=== PATIENT | male | born 1930 | race American Indian/Alaskan Native ===

== ENCOUNTER 2016-10-19 18:50 | Inpatient (IN) | payer MEDICARE, OTHER ==
[2016-10-19 19:44] VITALS: BMI 40.7
[2016-10-19] MEDS ORDERED: Albuterol-Ipratrop 3 mg / 0.5 (3 ml) UD IH SCH (20:00)
[2016-10-19 21:00] LABS: ADD MANUAL DIFF? NO
[2016-10-19 21:05] LABS: BASO # 0.02 K/mm3 (0.0-2.0); BASO % 0.3 % (0.0-3.0); EOS # 0.4 (0.0-0.7); EOS % 5.8 % (1.5-5.0); GRAN # 3.76 (1.4-6.5); GRAN % 58.9 % (50.0-68.0); HEMATOCRIT 43.2 % (42.0-52.0); LYMPH # 1.7 (1.2-3.4); MEAN CELL VOLUME 90.9 fL (80.0-105.0); MEAN CORPUSCULAR HEMOGLOBIN 30.3 pg (25.0-35.0); MEAN CORPUSCULAR HGB CONC 33.3 g/dl (31.0-37.0); MEAN PLATELET VOLUME 10.2 fl (7.0-11.0); MONO # 0.5 (0.1-0.6); PLATELET COUNT 273 10^3/uL (120.0-450.0); RED CELL DISTRIBUTION WIDTH 13.1 % (11.5-14.5); WHITE BLOOD COUNT 6.4 10^3/ul (4.5-11.0)
[2016-10-19 21:15] LABS: ALB/GLOB RATIO 1.3 (1.1-1.8); ALKALINE PHOSPHATASE 105 U/L (38-133); ALT/SGPT 25 U/L (7-56); AST/SGOT 21 U/L (15-59); BILIRUBIN,TOTAL 0.8 mg/dL (0.2-1.3); BLOOD UREA NITROGEN 13 mg/dL (7-21); CALCIUM 9.3 mg/dL (8.4-10.5); CARBON DIOXIDE 35 mmol/L (21-33); CHLORIDE 95 mmol/L (98-107); GFR AFRICAN-AMERICAN > 60; GLUCOSE,RANDOM 103 mg/dL (70-110); POTASSIUM 3.9 mmol/L (3.6-5.0); SODIUM 138 mmol/L (132-148); TOTAL PROTEIN 7.1 g/dL (5.8-8.3); VENOUS BLOOD GAS BASE EXCESS 5.4 mmol/L (0.0-2.0); VENOUS BLOOD PH 7.22 (7.32-7.43)
[2016-10-19 21:31] LABS: TROPONIN I < 0.01 ng/mL
[2016-10-19 21:48] LABS: ARTERIAL BLOOD GAS HCO3 28.9 mmol/L (21-28); ARTERIAL BLOOD GAS O2 CAPACITY 18.9 mL/dl (16-24); ARTERIAL BLOOD GAS O2 CONTENT 18.1 ML/dl (15-23); ARTERIAL BLOOD GAS PH 7.29 (7.35-7.45); ARTERIAL BLOOD HGB O2 SAT 93.4 % (95.0-98.0); CARBOXYHEMOGLOBIN 2.2 % (0.5-1.5); METHEMOGLOBIN 0.4 % (0.0-3.0)
--- NOTE | 2016-10-19 22:17 | ED PDOC ---
Arrival/HPI - General Chief Complaint: Shortness Of Breath Time Seen by Provider: 10/19/16 19:14 Historian: Patient - History of Present Illness Narrative History of Present Illness (Text): 10/19/16 22:17 An 86 year old male presents to the emergency department complaining of shortness of breath for a week. Patient denies any other complaints at this time. Time/Duration: 1 week Symptom Onset: Sudden Symptom Course: Unchanged Activities at Onset: Rest Context: Home Past Medical History - Provider Review Nursing Documentation Reviewed: Yes - Pulmonary Hx Asthma: Yes Hx Chronic Obstructive Pulmonary Disease (COPD): Yes - Psychiatric Hx Substance Use: No Family/Social History - Physician Review Nursing Documentation Reviewed: Yes Family/Social History: No Known Family HX Smoking Status: Unknown If Ever Smoked Hx Alcohol Use: No Hx Substance Use: No Allergies/Home Meds Allergies/Adverse Reactions: Allergies No Known Allergies Allergy (Verified 10/19/16 19:50) Home Medications: Home Meds Medication Instructions Recorded Confirmed Aspirin [Aspirin Chewable] 81 mg PO DAILY 10/19/16 10/19/16 Prednisone [Deltasone] 20 mg PO DAILY 10/19/16 10/19/16 Review of Systems - Physician Review All systems were reviewed & negative as marked: Yes - Review of Systems Respiratory: SOB Cardiovascular: absent: Chest Pain Gastrointestinal: absent: Abdominal Pain Physical Exam Vital Signs Reviewed: Yes Vital Signs Temp Pulse Resp BP Pulse Ox 10/20/16 00:37 95 H 16 117/70 94 L 10/20/16 00:17 86 10/19/16 21:55 95 H 18 125/76 96 10/19/16 20:15 91 L 10/19/16 18:51 97.7 F 94 H 22 127/79 88 L Temperature: Afebrile Blood Pressure: Normal Pulse: Regular Respiratory Rate: Normal Appearance: Positive for: Well-Appearing, Non-Toxic, Comfortable Pain Distress: None Mental Status: Positive for: Alert and Oriented X 3 - Systems Exam Head: Present: Atraumatic, Normocephalic Pupils: Present: PERRL Extroacular Muscles: Present: EOMI Conjunctiva: Present: Normal Mouth: Present: Moist Mucous Membranes Neck: Present: Normal Range of Motion Respiratory/Chest: Present: Good Air Exchange, Wheezes. No: Respiratory Distress, Accessory Muscle Use Cardiovascular: Present: Regular Rate and Rhythm, Normal S1, S2. No: Murmurs Abdomen: Present: Normal Bowel Sounds. No: Tenderness, Distention, Peritoneal Signs Back: Present: Normal Inspection Upper Extremity: Present: Normal Inspection. No: Cyanosis, Edema Lower Extremity: Present: Normal Inspection. No: Edema Neurological: Present: GCS=15, CN II-XII Intact, Speech Normal Skin: Present: Warm, Dry, Normal Color. No: Rashes Psychiatric: Present: Alert, Oriented x 3, Normal Insight, Normal Concentration Medical Decision Making ED Course and Treatment: 10/19/16 22:15 Impression: An 86 year old male with shortness of breath. Plan: -- EKG -- chest xray -- labs -- Duoneb, Solumedrol -- Reassess and disposition Progress Notes: EKG: Ordered, reviewed, and independently interpreted the EKG. Rate : 90 BPM Rhythm : NSR Interpretation : Nonspecific ST segment changes 10/19/16 23:[address] Juarez, who agrees to admit patient to telemetry. will order bipap 10/20/16 01:07 - Lab Interpretations Lab Results: 10/19/16 20:35 10/19/16 20:35 Lab Results 10/19/16 20:40: pCO2 60 H, pO2 68.0 L, HCO3 28.9 H, ABG pH 7.29 L, ABG Total CO2 30.7 H, ABG O2 Saturation 95.9, ABG O2 Content 18.1, ABG Base Excess 0.9, ABG Hemoglobin 13.8, ABG Carboxyhemoglobin 2.2 H, POC ABG HHb (Measured) 4.0, ABG Methemoglobin 0.4, ABG O2 Capacity 18.9, Hgb O2 Saturation 93.4 L, FiO2 28.0 10/19/16 20:35: Sodium 138, Chloride 95 L, Potassium 3.9, Carbon Dioxide 35 H, Anion Gap 12, BUN 13, Creatinine 0.7, Est GFR ( Amer) > 60, Est GFR (Non- Af Amer) > 60, Random Glucose 103, Calcium 9.3, Total Bilirubin 0.8, AST 21, ALT 25, Alkaline Phosphatase 105, Lactate Dehydrogenase 441, Total Creatine Kinase 37, Troponin I < 0.01, NT-Pro-B Natriuret Pep 84.6, Total Protein 7.1, Albumin 3.9, Globulin 3.1, Albumin/Globulin Ratio 1.3 10/19/16 20:35: pO2 35, VBG pH 7.22 L, VBG pCO2 90.0 H*, VBG HCO3 36.8 H, VBG Total CO2 39.6 H, VBG O2 Sat (Calc) 64.8, VBG Base Excess 5.4 H, VBG Potassium 4.0, Sodium 137.0, Chloride 99.0, Glucose 105, Lactate 1.1, FiO2 21.0, Venous Blood Potassium 4.0 10/19/16 20:35: WBC 6.4, RBC 4.75, Hgb 14.4, Hct 43.2, MCV 90.9, MCH 30.3, MCHC 33.3, RDW 13.1, Plt Count 273, MPV 10.2, Gran % 58.9, Lymph % (Auto) 27.0, Ogle % (Auto) 8.0 H, Eos % (Auto) 5.8 H, Baso % (Auto) 0.3, Gran # 3.76, Lymph # 1.7 , Ogle # 0.5, Eos # 0.4, Baso # 0.02 I have reviewed the lab results: Yes - RAD Interpretation Radiology Orders: 10/19/16 19:55 CHEST PORTABLE [RAD] Stat - EKG Interpretation Interpreted by ED Physician: Yes Type: 12 lead EKG - Medication Orders Current Medication Orders: Acetaminophen (Tylenol 325mg Tab) 650 mg PO Q4H PRN PRN Reason: Pain, Mild (1-3) Albuterol/Ipratropium (Duoneb 3 Mg/0.5 Mg (3 Ml) Ud) 3 ml IH Q15M [facility] Last Admin: 10/19/16 20:13 Dose: 3 ml Albuterol/Ipratropium (Duoneb 3 Mg/0.5 Mg (3 Ml) Ud) 3 ml IH Q4H PRN PRN Reason: Shortness of Breath Discontinued Medications Lorazepam (Ativan) 1 mg PO ONCE ONE PRN Reason: Protocol Stop: 10/19/16 23:35 Last Admin: 10/19/16 23:59 Dose: 1 mg Methylprednisolone (Solu-Medrol) 125 mg IVP STAT STA Stop: 10/19/16 19:55 Last Admin: 10/19/16 20:50 Dose: 125 mg - Scribe Statement The provider has reviewed the documentation as recorded by the Mika Ricketts Provider Scribe Attestation: All medical record entries made by the Mika were at my direction and personally dictated by me. I have reviewed the chart and agree that the record accurately reflects my personal performance of the history, physical exam, medical decision making, and the department course for this patient. I have also personally directed, reviewed, and agree with the discharge instructions and disposition. Disposition/Present on Arrival - Present on Arrival Any Indicators Present on Arrival: No History of DVT/PE: No History of Uncontrolled Diabetes: No Urinary Catheter: No History of Decub. Ulcer: No History Surgical Site Infection Following: None - Disposition Have Diagnosis and Disposition been Completed?: Yes Diagnosis: Chronic obstructive lung disease Disposition: HOSPITALIZED Disposition Time: 23:00 Condition: GOOD
[2016-10-20] MEDS ORDERED: Albuterol-Ipratrop 3 mg / 0.5 (3 ml) UD IH PRN ×2 (00:27→10:43)
--- NOTE | 2016-10-20 09:50 | RAD ---
HISTORY: sob COMPARISON: No prior. FINDINGS: LUNGS: No definite infiltrate or pleural effusion is appreciate however the medial right apex is obscured by the patient's lower face/ neck. Left hemidiaphragm is also elevated from an indeterminate etiology. PLEURA: No significant pleural effusion identified, no pneumothorax apparent. CARDIOVASCULAR: Normal. OSSEOUS STRUCTURES: No significant abnormalities. VISUALIZED UPPER ABDOMEN: Normal. OTHER FINDINGS: None. IMPRESSION: No acute infiltrate or pleural effusion identified. The left hemidiaphragm appears elevated from an indeterminate etiology. Right apex obscured by patient's lower face/ neck soft tissues
--- NOTE | 2016-10-20 11:44 | CARD ---
APPROVED REPORT EKG Measurement Heart [id number] <Conclusion> Normal sinus rhythm Left anterior fascicular block Possible Inferior infarct, age undetermined Abnormal ECG
[2016-10-20] MEDS: cefTRIAXone 1 gm 1 GM/100 ML BAG IVPB SCH (12:44)
[2016-10-20] MEDS: Azithromycin 500MG/NS 250ml 500 MG/250 ML BAG IVPB SCH (12:45)
[2016-10-20] MEDS: MethylPREDNISolone 40 mg Vial IV SCH ×2 (12:46→21:59)
--- NOTE | 2016-10-20 12:50 | CT ---
PROCEDURE: CT Chest without contrast HISTORY: sob COMPARISON: None. TECHNIQUE: Contiguous axial images were obtained through the chest without intravenous contrast enhancement. Sagittal and coronal reconstructions were performed. Radiation dose (DLP): 1430 mGy-cm. This CT exam was performed using one or more of the following dose reduction techniques: Automated exposure control, adjustment of the mA and/or kV according to patient size, and/or use of iterative reconstruction technique. FINDINGS: LUNGS: No infiltrate is identified. . There is a tiny 3 mm nodule identified at the right lower lobe laterally image 161 series 2. Visualized airway clear. MEDIASTINUM: Unremarkable thoracic aorta. No aneurysm. Normal sized heart. Main pulmonary artery unremarkable. No vascular congestion. No lymphadenopathy. PLEURA: No pleural fluid. No pneumothorax. BONES: No fracture. No destructive lesion. UPPER ABDOMEN: Grossly unremarkable. OTHER FINDINGS: In the posterior triangle of the right side of the neck, there is a large fatty mass measuring 4.1 x 7.3 by 8.9 cm (traverse by anteroposterior by superoinferior dimensions) which contains minimal streaking internal intermediate density it deep to the right sternocleidomastoid muscle, originating posterior to the inferior margins of the right parotid gland and terminating at the right clavicular head. No definite additional supra or infrahyoid neck pathology is appreciated in this noncontrast neck CT segment. 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 Follow-up MRI without contrast is advised to further evaluate nevertheless. IMPRESSION: 1. 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 Follow-up MRI without contras advised to exclude potential malignancy. 2. A nonspecific 3 mm nodule seen the right lower lobe. Follow-up chest is advised in 1 year to initiate stability assessment. Lung rads 2.
[2016-10-20] MEDS: Albuterol-Ipratrop 3 mg / 0.5 (3 ml) UD IH SCH ×2 (13:31→19:34)
[2016-10-21] MEDS: Albuterol-Ipratrop 3 mg / 0.5 (3 ml) UD IH SCH ×4 (01:12→19:32)
--- NOTE | 2016-10-21 04:40 | HP ---
HISTORY OF PRESENT ILLNESS: The patient is an 86-year-old, who was seen in office almost a week ago. He was given course of antibiotics, nebulizer treatment and tapering dose of steroids since he was having increasing shortness of breath. According to the sister who was accompanying, he has been increasingly sleepy, not eating well, not ambulating, so he was brought into the office for followup yesterday. She states he has audible wheezing, still not eating, not ambulating, and still coughing and getting shortness of breath. He was referred to the emergency room for further evaluation. PAST MEDICAL HISTORY: The patient has significant past medical history of, 1. COPD. 2. Hypertension. 3. Vitiligo. 4. Chronic degenerative disk disease. ALLERGIES: Not allergic to any medications. MEDICATIONS: At home, he is on aspirin 81 daily, he is on prednisone 20 mg daily. FAMILY HISTORY: Text. SOCIAL HISTORY: He denies smoking, drinking, or alcohol use. REVIEW OF SYSTEMS: Significant for hard of hearing, somewhat forgetful, he is having audible wheezing. PHYSICAL EXAMINATION GENERAL: He is awake and alert. VITAL SIGNS: He is afebrile, pulse 107, respirations 18, blood pressure 101/60. HEART: S1 and S2 audible. LUNGS: Bilateral few expiratory rhonchi. ABDOMEN: Soft, obese, nontender. No rebound. No guarding. NEUROLOGIC: The patient is awake and alert. Able to communicate. LABORATORY DATA: WBC 6.4, hemoglobin 14, hematocrit 43, platelets 273. Chemistry, sodium 138, potassium 3.9, chloride 95, CO2 of 35, BUN 13, creatinine 0.7, blood sugar of 103. 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 ASSESSMENT: 1. Chronic obstructive pulmonary disease exacerbation. 2. Hypertension. 3. Right neck mass. 4. Mild dementia. 5. Vitiligo. PLAN: We will continue the patient on IV steroids, antibiotics, nebulizer treatment. Followup echocardiogram and we will follow up clinical course and make discharge plan. We will followup clinically and might need *------* depending on his physical therapy evaluation. Zain Juarez MD [facility] # [id number]
[2016-10-21] MEDS: Pantoprazole 40 mg EC Tab PO SCH (06:13)
[2016-10-21] MEDS: cefTRIAXone 1 gm 1 GM/100 ML BAG IVPB SCH (09:57)
[2016-10-21] MEDS: MethylPREDNISolone 40 mg Vial IV SCH (09:58)
[2016-10-21] MEDS: Azithromycin 500MG/NS 250ml 500 MG/250 ML BAG IVPB SCH (13:19)
--- NOTE | 2016-10-21 20:06 | CON ---
DATE: 10/21/2016 HISTORY: The patient is an 86-year-old male who presents with his sister for progressive shortness of breath for 1 week. The patient denies chest pain, however, the patient remained very confused. He is unaware of why he is in the hospital. He denies shortness of breath now. His past medical history is only from the chart and is unclear. He apparently has a history of COPD and hypertension in the past. No previous cardiac history is noted. Social history and review of systems are unavailable. On physical exam, blood pressure 146/73, heart rate is in the 90s. Neck: Negative JVD. Lungs: No wheezing, no rales. Heart: Reveal S1, S2 without murmurs. Extremities: Without edema. Neurologic: The patient moves all four extremities, but is confused. Laboratory revealed a hemoglobin of 14.1. Chemistries, the Pro-BNP is normal. The troponin is negative. Chest CT reveals a mass in the right sternocleidomastoid. In addition, there is a 3 mm nodule seen in the right lower lobe. IMPRESSION: 1. Dyspnea. 2. Likely due to bronchospasm. 3. No evidence for acute coronary syndrome. 4. Chronic obstructive pulmonary disease. 5. Dementia. Given these findings, we will obtain an echocardiogram to evaluate his LV function. Gennaro Jang MD
--- NOTE | 2016-10-21 21:52 | PN ---
DATE: 10/21/2016 SUBJECTIVE: The patient is confused. He is agitated. He is trying to get out of bed. PHYSICAL EXAMINATION VITAL SIGNS: Temperature is 97.5, pulse 106, blood pressure 137/85, respirations 20. GENERAL: The patient is comfortable, in no acute distress. HEENT: Anicteric sclerae. Moist mucosa. NECK: No JVD or adenopathy. CARDIAC: S1, S2. No murmurs. No rubs. Regular. RESPIRATORY: Clear to auscultation bilaterally. No wheezes, rales, or rhonchi. Good air entry. ABDOMEN: Bowel sounds are positive, soft, nontender, and nondistended. EXTREMITIES: No edema. Has 1+ pulses. LABS: White count 6.4, hemoglobin 14.4, creatinine 0.7. Chest CT is reviewed. ASSESSMENT: 1. Delirium. 2. History of acute chronic obstructive pulmonary disease. 3. Hypertension. 4. Right neck lipoma. 5. A 3 mm right lung nodule. 6. Dementia, Alzheimer's type. 7. Vitiligo. PLAN: The patient is currently comfortable. He is on Keppra, this will be continued. He is receiving Lovenox for DVT prophylaxis. The patient is on metoprolol. He is on a heart healthy diet. The patient is on Ativan for delirium. The patient is going to continue with nebulizer treatment and Rocephin for antibiotics. He is on steroids. He is on the BiPAP. I will get Dr. Greer to evaluate the patient for the lung nodule. Elliot Allen MD
[2016-10-22] MEDS: MethylPREDNISolone 40 mg Vial IV SCH (00:28)
[2016-10-22] MEDS: Albuterol-Ipratrop 3 mg / 0.5 (3 ml) UD IH SCH ×4 (02:00→19:59)
[2016-10-22] MEDS: Pantoprazole 40 mg EC Tab PO SCH (06:00)
--- NOTE | 2016-10-22 08:03 | CON ---
DATE: 10/22/2016 REASON FOR CONSULTATION: Solitary pulmonary nodule. REFERRING PHYSICIAN: Elliot Allen MD HISTORY OF PRESENT ILLNESS: History was obtained via extensive discussion with the night nurse. I have also reviewed the chart at length and discussed the case with the patient at length. The patient is an 86-year-old male with past medical history significant for chronic obstructive pulmonary disease, hypertension, who presents to [facility] with a 1-week history of increasing shortness of breath at rest, dyspnea on exertion, cough, and minimal sputum production. There is no history of chest pain, coughing up of blood, or chest pain, made worse with deep respirations. There is no history of temperature, chills or infectious exposure. There is no history of night sweats, weight loss or appetite change prior to the above events. No history of leg or calf pains. No history of syncope or diaphoresis. No history of recent travel or trauma. REVIEW OF SYSTEMS: No history of nausea, vomiting or diarrhea. No acute urinary symptoms. No new neurologic complaints. Rest of the review of systems is negative. ALLERGIES: NO KNOWN ALLERGIES. SOCIAL HISTORY: Positive for tobacco. Negative for alcohol. FAMILY HISTORY: No inheritable diseases. HOME MEDICATIONS: Include aspirin and prednisone. PHYSICAL EXAMINATION GENERAL: The patient is not short of breath at rest. He is not using accessory muscles for breathing. VITAL SIGNS: Last temperature recorded is 98.0, pulse this morning 88, respiratory rate 18, blood pressure 125/74. Oxygen saturation on BiPAP is 96%. HEENT: Normocephalic and atraumatic. NECK: No JVD. CARDIOVASCULAR: Positive S1 and S2. No S3. LUNGS: Decreased breath sounds at the bases. Minimal bilateral rhonchi. No wheezing. EXTREMITIES: Mild edema. No cyanosis. No clubbing. Calves are nontender to palpation. GASTROINTESTINAL: Abdomen is soft, nontender, nondistended. Bowel sounds are positive. SKIN: No acute rash. NEUROLOGIC: Limited at the present time. SKIN : No rashes. CURRENT LABORATORY DATA: CAT scan of the neck and chest was done on 10/20/2016. As far as the neck is concerned, there is a probable lipoma in the right neck area. Density studies show that the mass is translucent and fatty in nature. There is also a tiny (3 mm) nodule noted in the right lower lobe. Arterial blood gas was done on nasal cannula on 09/19/2016. Results are; pH of 7.29, pCO2 of 60, pO2 of 68. CBC: White count 6.4, hemoglobin 14.4, hematocrit 43.2, platelets are 273. Complete metabolic profile: Chloride 95, carbon dioxide 35. Rest of the metabolic profile is within normal limits. IMPRESSION: 1. Acute bronchitis. 2. Chronic obstructive pulmonary disease. 3. Respiratory insufficiency. 4. Solitary pulmonary nodule, right lower lobe. PLAN: Again, I did discuss the case with the night nurse at length. I have also reviewed the chart at length. The patient presented to [facility], originally on 10/19/2016, with a 1-week history of worsening pulmonary symptoms. I did review the CAT scan of the neck and chest. There appears to be a right-sided neck lipoma present. There is also a tiny (3 mm) nodule seen in the right lower lobe. This nodule can easily be followed as an outpatient. On physical exam, only minimal bronchospasm is noted. I will continue the current nebulizer treatments and decrease the intravenous steroids at this point in time. I have also reviewed the previous arterial blood gas. Acute on chronic respiratory acidosis is noted. I will repeat the arterial blood gas this morning, and decide on the need for additional non-invasive ventilation usage. The patient does state feeling much better this morning, and is clinically improved. Additional pulmonary intervention will be based on the above results, as well as the clinical status of the patient. I will discuss the above the attending physician this morning. Thank you very much for this pulmonary consultation. Tone Greer MD MTDJannette
--- NOTE | 2016-10-22 08:49 | HP ---
HISTORY OF PRESENT ILLNESS: The patient is 86 years old known to me from practice, was seen in office week and a half ago. He was given antibiotics with tapering dose of steroids and nebulizer treatment because he was having cough, congestion, wheezing and shortness of breath and minimal exertion. He followed up an office. His sister states that his symptoms same and he was unable to walk small distance, so he was referred to emergency room for further evaluation. PAST MEDICAL HISTORY: Significant for: 1. Vitiligo. 2. Hypertension. 3. COPD. ALLERGIES: NOT ALLERGIC TO ANY MEDICATIONS. MEDICATIONS AT HOME: He is on aspirin 81 mg daily and he is on prednisone 20 mg daily. SOCIAL HISTORY: He lives with sister and who states she is very weak and lethargic and sleep all the time. REVIEW OF SYSTEMS: Significant for audible wheezing, easy fatigability and exertional dyspnea. PHYSICAL EXAMINATION GENERAL: He is awake and alert, able to communicate. VITAL SIGNS: He is afebrile, pulse 53, respirations 20 and blood pressure 113/76. LUNGS: Bilateral fair airflow. Few expiratory rhonchi, diffuse. HEART: S1 and S2 audible. ABDOMEN: Soft, obese and nontender. No rebound. No guarding. NEUROLOGIC: He is awake and alert, able to communicate. EXTREMITIES: Bilateral legs, no edema. LABORATORY DATA: WBC 6.4, hemoglobin 14, hematocrit 43 and platelets 273. Chemistry; sodium 138, potassium 3.9, chloride 95, CO2 of 35, BUN 13, creatinine 0.7 and blood sugar 103. X-ray chest shows no acute infiltrates or pleural effusion, identify the left hemidiaphragm appears elevated from an indeterminate etiology. ASSESSMENT: 1. Chronic obstructive pulmonary disease exacerbation. 2. Asthmatic bronchitis. 3. Right neck lump. 4. Vitiligo. Zain Juarez MD
[2016-10-22 09:15] LABS: ARTERIAL BLOOD GAS HCO3 30.2 mmol/L (21-28); ARTERIAL BLOOD GAS O2 CAPACITY 17.2 mL/dl (16-24); ARTERIAL BLOOD GAS PH 7.38 (7.35-7.45); ARTERIAL BLOOD HGB O2 SAT 90.5 % (95.0-98.0); CARBOXYHEMOGLOBIN 1.6 % (0.5-1.5); METHEMOGLOBIN 0.9 % (0.0-3.0)
--- NOTE | 2016-10-22 09:19 | PN ---
DATE: 10/21/2016 ADDENDUM This is a continuation of the progress note that is dictated earlier today and abruptly interrupted. PLAN: The patient is currently confused. I will place the patient on Ativan. To prevent self-harm, he is in restraints. The patient is on steroids, Solu-Medrol. He is on Rocephin for antibiotics. The patient is on Protonix. The patient has an echo that has been ordered. He is on a heart healthy diet. Elliot Allen MD
[2016-10-22] MEDS: MethylPREDNISolone 40 mg Vial IVP SCH ×2 (10:29→21:04)
[2016-10-22] MEDS: cefTRIAXone 1 gm 1 GM/100 ML BAG IVPB SCH (10:30)
[2016-10-22] MEDS: Azithromycin 500MG/NS 250ml 500 MG/250 ML BAG IVPB SCH (11:24)
--- NOTE | 2016-10-22 17:59 | PN ---
SUBJECTIVE: The patient is an 86 years old, seen and examined, doing well. Cough and congestion is much better. PHYSICAL EXAMINATION: VITAL SIGNS: He is afebrile, pulse 88, respirations 18, blood pressure 118/77. LUNGS: Bilateral fair airflow. No rhonchi or crackles. HEART: S1 and S2 audible. ABDOMEN: Soft, nontender. No rebound. No guarding. NEUROLOGIC: He is awake and alert, somewhat forgetful. He has fullness in the right neck secondary to lipoma. ASSESSMENT: 1. Chronic obstructive pulmonary disease exacerbation. 2. Bronchospasm. 3. Hypertension. 4. Right neck lipoma. 5. Small pulmonary nodule. 6. Dementia. 7. Vitiligo. PLAN: At this point, patient is clinically stable. We will continue him on current medication. Requests for TCU evaluation if he is accepted, can be transferred to TCU. Zain Juarez MD
[2016-10-23] MEDS: Albuterol-Ipratrop 3 mg / 0.5 (3 ml) UD IH SCH ×4 (01:18→20:30)
[2016-10-23] MEDS: Pantoprazole 40 mg EC Tab PO SCH (05:58)
--- NOTE | 2016-10-23 07:33 | PN ---
DATE: 10/23/2016 SUBJECTIVE: The patient appears very comfortable at rest. He is not short of breath. PHYSICAL EXAMINATION VITAL SIGNS: Temperature 97.8, pulse 80, respiratory rate 18, blood pressure 104/69. Oxygen saturation on nasal canula 2 liters is 98%. HEENT: Normocephalic and atraumatic. NECK: No JVD. CARDIOVASCULAR: Positive S1 and S2. No S3. LUNGS: Decreased breath sounds at the bases. Very minimal/less rhonchi. No wheezing. EXTREMITIES: Mild edema. No cyanosis. No clubbing. Calves are nontender to palpation. GASTROINTESTINAL: Abdomen is soft, nontender, nondistended. Bowel sounds are positive. SKIN: No acute rash. NEUROLOGIC: Limited at the present time. CURRENT LABORATORY DATA: Arterial blood gas was done room air yesterday and reviewed. Results are; pH of 7.38, pCO2 of 51, pO2 of 57. IMPRESSION: 1. Acute bronchitis. 2. Chronic obstructive pulmonary disease. 3. Respiratory insufficiency. 4. Solitary pulmonary nodule, right lower lobe. PLAN: The patient appears very comfortable this morning. He is not short of breath at rest. He states he is feeling better overall. Unfortunately, he is not wearing his BiBAP at night. I did discuss this issue with the patient at length. I have also reviewed the arterial blood gas. There is now normalization of the pH. A mild Alveolar-arterial gradient remains. On physical exam, his bronchospasm continues to resolve. I will continue with the current nebulizer treatments and low-dose intravenous steroids for now. The patient also remains on antibiotic therapy. There are no temperatures noted. There is no leukocytosis. Clinical status of the patient has certainly improved overall. However, the future status/prognosis for this elderly patient does remain very guarded. I will discuss the above with the attending physician. Tone Greer MD MTDD
[2016-10-23] MEDS: cefTRIAXone 1 gm 1 GM/100 ML BAG IVPB SCH (10:44)
[2016-10-23] MEDS: MethylPREDNISolone 40 mg Vial IVP SCH (10:45)
[2016-10-23] MEDS: Azithromycin 500MG/NS 250ml 500 MG/250 ML BAG IVPB SCH (10:45)
--- NOTE | 2016-10-23 16:40 | PN ---
DATE: 10/23/2016 CARDIOLOGY FOLLOWUP SUBJECTIVE: The patient's breathing is markedly improved. No chest pain. No shortness of breath noted. PHYSICAL EXAMINATION: VITAL SIGNS: Blood pressure 118/77, heart rate in the 80s. NECK: Negative JVD. LUNGS: Without rales. HEART: S1, S2. EXTREMITIES: Without edema. LABORATORY DATA: Include an echocardiogram which reveals good LV function with an EF of 65% to 70%. There is mild pulmonary hypertension noted. IMPRESSION: 1. Dyspnea, which is now proved. 2. Bronchospasm. 3. Chronic obstructive pulmonary disease. 4. Mild pulmonary hypertension. 5. Dementia. PLAN: Given these findings, the patient's treatment for his dyspnea secondary to his lung disease is markedly improved. No further cardiac workup is necessary. Gennaro Jang MD
[2016-10-24] MEDS: Albuterol-Ipratrop 3 mg / 0.5 (3 ml) UD IH SCH ×4 (02:48→21:00)
--- NOTE | 2016-10-24 03:01 | PN ---
HISTORY OF PRESENT ILLNESS: The patient is 86 years old, seen in examine sitting in chair. Breathing seems to be better. No nausea or vomiting. No diarrhea. Eating and tolerating. PHYSICAL EXAMINATION: VITAL SIGNS: He is afebrile. Pulse 87, respirations 18 and blood pressure 118/77. LUNGS: Bilateral fair airflow. No known rhonchi or crackle. HEART: S1 and S2 audible. ABDOMEN: Soft, obese and nontender. No rebound. No guarding. NEUROLOGIC: The patient is awake and alert, able to communicate. He has lipoma on the right side of the neck and in the left upper chest. LABORATORY DATA: Echocardiogram is pending. CT scan of the chest and the neck is unremarkable for any infiltrate. ASSESSMENT: 1. Right neck lipoma. 2. Chronic obstructive pulmonary disease excerebration. 3. Dementia. 4. Vitiligo. 5. Asthmatic bronchitis. PLAN: Currently, the patient is on nebulizer treatment. He is on Protonix. He is getting Rocephin. We will cut down his steroid and continue current antibiotics. Discussed with neonatal social worker for disposition plan. TCU evaluation has been requested, if he is accepted he can be transferred to TCU, but according to nurse, family has a plan to transfer him to long-term rehab, it is not decided yet. The patient is clinically stable and can be discharged either today or tomorrow. Zain Juarez MD
[2016-10-24] MEDS: Pantoprazole 40 mg EC Tab PO SCH (05:40)
--- NOTE | 2016-10-24 10:18 | PN ---
DATE: 10/24/2016 SUBJECTIVE: The patient appears comfortable this morning. He is not short of breath at rest. PHYSICAL EXAMINATION VITAL SIGNS: Temperature 98.0, pulse 88, respirations 18, blood pressure 119/79. Oxygen saturation on room air is 90%. Oxygen saturation on nasal cannula is 99%. HEENT: Normocephalic, atraumatic. NECK: No JVD. CARDIOVASCULAR: Positive S1 and S1. No S3 gallop. LUNGS: Decreased breath sounds at the bases, very minimal/less rhonchi. No wheezing. EXTREMITIES: Mild edema. No cyanosis, no clubbing. Calves are nontender to palpation. GASTROINTESTINAL: Abdomen is soft, nontender, nondistended. Bowel sounds are positive. SKIN: No acute rash. NEUROLOGIC: Exam is limited at the present time. IMPRESSION: 1. Acute bronchitis. 2. Chronic obstructive pulmonary disease. 3. Respiratory insufficiency. 4. Solitary pulmonary nodule, right lower lobe. PLAN: The patient appears very comfortable this morning. He is not short of breath at rest. He is less confused. He states he is feeling better overall. I did discuss the case with the night nurse at length. The patient continues to refuse his BiPAP. The patient also pulls off his nasal canula oxygen frequently. I did discuss this issue with him at length this morning. On physical exam, there is less bronchospasm noted. I will continue with the current nebulizer treatments and oral steroids (changed by Dr. Starks) for now. The patient remains on multiple antibiotics. There are no temperatures noted. There is no leukocytosis. We can probably taper off the antibiotics at this point in time. Overall clinical status of the patient is certainly improved. However, again, the future status/prognosis for this patient does remain very guarded. I will discuss the above with Dr. Starks. Tone Greer MD MTDD
[2016-10-24] MEDS: Azithromycin 500MG/NS 250ml 500 MG/250 ML BAG IVPB SCH (10:43)
[2016-10-24] MEDS: cefTRIAXone 1 gm 1 GM/100 ML BAG IVPB SCH (10:44)
[2016-10-24] MEDS: Vancomycin 1gm in NS 250ml 1 GM/250 ML BAG IVPB SCH (14:00)
[2016-10-25] MEDS: Vancomycin 1gm in NS 250ml 1 GM/250 ML BAG IVPB SCH ×2 (00:48→12:30)
[2016-10-25] MEDS: Albuterol-Ipratrop 3 mg / 0.5 (3 ml) UD IH SCH ×4 (02:40→20:29)
--- NOTE | 2016-10-25 04:55 | PN ---
HISTORY OF PRESENT ILLNESS: The patient is an 86 years old seen and examined and seem to be confused; however, he is still complaining of cough, mild shortness of breath on walking. PHYSICAL EXAMINATION: VITAL SIGNS: He is afebrile, pulse 87, respiration 18 and blood pressure 118/77. HEAD AND NECK: He has big lipoma in his neck side not affecting his respiration though. LUNGS: Bilateral few expiratory rhonchi. HEART: S1 and S2, audible. ABDOMEN: Soft and nontender. No rebound. No guarding. EXTREMITIES: Bilateral legs, no edema. NEUROLOGIC: He is awake and alert, able to answer simple question. LABORATORY DATA: There is no new labs available today. His blood culture on 10/20/2016 was positive, coag negative Staphylococcus. not sensitive to Rocephin, so I will start him on vancomycin, repeat the blood culture. ASSESSMENT: 1. Chronic obstructive pulmonary disease excerebration. 2. Coagulase negative Staphylococcus aureus in one bottle. 3. Mild dementia and agitation. PLAN: We will start on vancomycin, discontinue Rocephin and Dr. Dan for psych evaluation to adjust his medication for anxiety. Zain Juarez MD
[2016-10-25] MEDS: Pantoprazole 40 mg EC Tab PO SCH (06:19)
[2016-10-25 07:01] LABS: ADD MANUAL DIFF? NO
[2016-10-25 07:13] LABS: GRAN % 80.5 % (50.0-68.0); HEMATOCRIT 41.2 % (42.0-52.0); LYMPH # 0.9 (1.2-3.4); LYMPH % 12.9 % (22.0-35.0); MEAN CELL VOLUME 89.2 fL (80.0-105.0); MEAN CORPUSCULAR HEMOGLOBIN 29.9 pg (25.0-35.0); MEAN CORPUSCULAR HGB CONC 33.5 g/dl (31.0-37.0); MEAN PLATELET VOLUME 10.1 fl (7.0-11.0); MONO # 0.5 (0.1-0.6); MONO % 6.6 % (1.0-6.0); PLATELET COUNT 246 10^3/uL (120.0-450.0); RED CELL DISTRIBUTION WIDTH 13.4 % (11.5-14.5)
[2016-10-25 07:20] LABS: ALB/GLOB RATIO 1.2 (1.1-1.8); ALKALINE PHOSPHATASE 75 U/L (38-133); ALT/SGPT 53 U/L (7-56); AST/SGOT 34 U/L (15-59); BILIRUBIN,TOTAL 0.4 mg/dL (0.2-1.3); BLOOD UREA NITROGEN 10 mg/dL (7-21); CALCIUM 8.7 mg/dL (8.4-10.5); CARBON DIOXIDE 30 mmol/L (21-33); CHLORIDE 100 mmol/L (98-107); GFR AFRICAN-AMERICAN > 60; GLUCOSE,RANDOM 104 mg/dL (70-110); SODIUM 135 mmol/L (132-148); TOTAL PROTEIN 5.6 g/dL (5.8-8.3)
--- NOTE | 2016-10-25 08:26 | PN ---
DATE: 10/25/2016 SUBJECTIVE: The patient appears very comfortable at rest. He is not short of breath. PHYSICAL EXAMINATION VITAL SIGNS: Temperature 97.3, pulse 84, respirations 18, blood pressure 101/68. Oxygen saturation on room air is 91%. Oxygen saturation on nasal cannula is 98%. HEENT: Normocephalic and atraumatic. NECK: No JVD. CARDIOVASCULAR: Positive S1 and S1. No S3. LUNGS: Clear bilaterally. EXTREMITIES: Mild edema. No cyanosis, no clubbing. Calves are nontender to palpation. GASTROINTESTINAL: Abdomen is soft, nontender, nondistended. Bowel sounds are positive. SKIN: No acute rash. NEUROLOGIC: Exam is limited at the present time. IMPRESSION: 1. Acute bronchitis. 2. Chronic obstructive pulmonary disease. 3. Respiratory insufficiency. 4. Solitary pulmonary nodule, right lower lobe. PLAN: The patient appears very comfortable this morning. He is not short of breath at rest. I did discuss the case with the night nurse at length. The night nurse stated that the patient did have good night, but continues to take off his nasal canula. On physical exam, his lungs are now clear. I will continue with the current nebulizer treatments and decrease the oral steroids this morning. The patient remains on multiple antibiotics - as per Dr. Starks. Pulmonary status of the patient has certainly improved. I would continue with the physical therapy input. I will discuss the above with the attending physician. Tone Greer MD MTDD
[2016-10-25] MEDS: cefTRIAXone 1 gm 1 GM/100 ML BAG IVPB SCH (10:15)
[2016-10-25] MEDS: Azithromycin 500MG/NS 250ml 500 MG/250 ML BAG IVPB SCH (10:15)
--- NOTE | 2016-10-25 12:42 | PN ---
SUBJECTIVE: The patient is an 86 years old seen and examined, lying in bed, seems to be comfortable, not in no acute distress, eating and tolerating; no shortness of breath. PHYSICAL EXAMINATION: VITAL SIGNS: He is afebrile. Pulse 89, respirations 20 and blood pressure 134/89. LUNGS: Bilateral fair airflow. No rhonchi or crackle. HEART: S1 and S2 audible. ABDOMEN: Soft, nontender. No rebound. No guarding. NEUROLOGIC: He is awake and alert, able to communicate. Some visual impairment; bilateral leg no edema. LABORATORY DATA: WBC 7.0, hemoglobin 13, hematocrit 41, platelet 246. Chemistry; sodium 135, potassium 4.0, chloride 100, CO2 of 30, BUN 10, creatinine 0.6, blood sugar of 104. LFTs are within normal limit. ASSESSMENT AND PLAN: 1. Chronic obstructive pulmonary disease excerebration. 2. Hypertension. 3. Hyperlipidemia. 4. Right-sided neck lipoma. 5. Mild dementia. PLAN: We are going to continue the patient on current medical treatment. He is on prednisone 30 mg daily. He is on vancomycin q. 12 hours. His blood culture was coag negative staph and repeat blood cultures are pending. We will continue current medication. 3 mm nodule in the right lower lobe, get evaluation by surgeon since family want to have opinion for possible lipoma resection, and health and social care teacher are in the process of making arrangement for medical terminologist placement. Zain Juarez MD
--- NOTE | 2016-10-25 13:19 | CP.PCM.CON ---
History of Present Illness - History of Present Illness History of Present Illness: General Surgery Consult for Dr. So Pt is a 86 y/o male here for COPD exacerbation. Surgery was consulted for a lipoma of the neck. Upon arrival to the room, family refused the surgical consult. Review of Systems - Review of Systems Systems not reviewed;Unavailable: Other (unattainable, family refused) Past Patient History - Past Social History Smoking Status: Unknown If Ever Smoked - CARDIAC Hx Hypertension: Yes - PULMONARY Hx Chronic Obstructive Pulmonary Disease (COPD): Yes - NEUROLOGICAL Hx Neurological Disorder: Yes (dementia as per sister) - HEENT Hx HEENT Problems: No - RENAL Hx Chronic Kidney Disease: No - ENDOCRINE/METABOLIC Hx Endocrine Disorders: No - HEMATOLOGICAL/ONCOLOGICAL Hx Blood Disorders: No - INTEGUMENTARY Hx Dermatological Problems: No - MUSCULOSKELETAL/RHEUMATOLOGICAL Hx Musculoskeletal Disorders: No Hx Falls: No - GASTROINTESTINAL Hx Gastrointestinal Disorders: No - PSYCHIATRIC Hx Psychophysiologic Disorder: No Hx Substance Use: No - SURGICAL HISTORY Hx Surgeries: Yes (eye surgery) Meds Allergies/Adverse Reactions: Allergies Allergy/AdvReac Type Severity Reaction Status Date / Time No Known Allergies Allergy Verified 10/19/16 19:50 - Medications Medications: Current Medications Acetaminophen (Tylenol 325mg Tab) 650 mg PO Q4H PRN PRN Reason: Pain, Mild (1-3) Albuterol/Ipratropium (Duoneb 3 Mg/0.5 Mg (3 Ml) Ud) 3 ml IH Q2H PRN PRN Reason: Shortness of Breath Last Admin: 10/22/16 00:28 Dose: 3 ml Albuterol/Ipratropium (Duoneb 3 Mg/0.5 Mg (3 Ml) Ud) 3 ml IH [id number] LIUDMILA Last Admin: 10/25/16 13:11 Dose: 3 ml Ceftriaxone Sodium (Rocephin 1 Gram Ivpb) 1 gm in 100 mls @ 100 mls/hr IVPB DAILY LIUDMILA PRN Reason: Protocol Last Admin: 10/25/16 10:15 Dose: 100 mls/hr Azithromycin (Zithromax 500mg In Ns) 500 mg in 250 mls @ 167 mls/hr IVPB DAILY LIUDMILA PRN Reason: Protocol Last Admin: 10/25/16 10:15 Dose: 167 mls/hr Vancomycin HCl (Vancomycin 1gm) 1 gm in 250 mls @ 167 mls/hr IVPB Q12H LIUDMILA PRN Reason: Protocol Last Admin: 10/25/16 12:30 Dose: 167 mls/hr Lorazepam (Ativan) 0.5 mg PO BID LIUDMILA PRN Reason: Protocol Last Admin: 10/25/16 10:14 Dose: 0.5 mg Lorazepam (Ativan) 0.5 mg PO HS LIUDMILA PRN Reason: Protocol Last Admin: 10/25/16 02:39 Dose: 0.5 mg Lorazepam (Ativan) 1 mg IVP Q6H PRN; Protocol PRN Reason: Anxiety Last Admin: 10/24/16 07:45 Dose: 1 mg Pantoprazole Sodium (Protonix Ec Tab) 40 mg PO 0630 LIUDMILA Last Admin: 10/25/16 06:19 Dose: 40 mg Prednisone (Prednisone Tab) 30 mg PO DAILY LIUDMILA Last Admin: 10/25/16 10:14 Dose: 30 mg Physical Exam - Additional Findings Additional findings: Family refused Results - Vital Signs Recent Vital Signs: Last Vital Signs Temp 97 F L 10/25/16 07:46 Pulse 89 10/25/16 07:46 Resp 20 10/25/16 07:46 BP 134/89 10/25/16 07:46 Pulse Ox 95 10/25/16 07:46 - Labs Result Diagrams: 10/25/16 06:50 10/25/16 06:50 Labs: Laboratory Results - last 24 hr 10/25/16 10/25/16 06:50 06:50 WBC 7.0 RBC 4.62 Hgb 13.8 L Hct 41.2 L MCV 89.2 MCH 29.9 MCHC 33.5 RDW 13.4 Plt Count 246 MPV 10.1 Gran % 80.5 H Lymph % (Auto) 12.[address] [place] % (Auto) 6.6 H Eos % (Auto) 0.0 L Baso % (Auto) 0.0 Gran # 5.60 Lymph # 0.[address] [place] # 0.5 Eos # 0.0 Baso # 0.00 Sodium 135 Potassium 4.0 Chloride 100 Carbon Dioxide 30 Anion Gap 9 L BUN 10 Creatinine 0.6 Est GFR ( Amer) > 60 Est GFR (Non-Af Amer) > 60 Random Glucose 104 Calcium 8.7 Total Bilirubin 0.4 AST 34 ALT 53 Alkaline Phosphatase 75 Total Protein 5.6 L Albumin 3.0 Globulin 2.6 Albumin/Globulin Ratio 1.2 Assessment & Plan - Assessment and Plan (Free Text) Assessment: 86 y/o M here for COPD exacerbation found to have lipoma of the neck. Family refused surgery consult. No intervention at this time.
[2016-10-26] MEDS: Vancomycin 1gm in NS 250ml 1 GM/250 ML BAG IVPB SCH ×2 (01:26→15:10)
[2016-10-26] MEDS: Albuterol-Ipratrop 3 mg / 0.5 (3 ml) UD IH SCH ×4 (04:11→20:12)
[2016-10-26] MEDS: Pantoprazole 40 mg EC Tab PO SCH (05:43)
[2016-10-26 06:50] LABS: ADD MANUAL DIFF? NO
[2016-10-26 07:05] LABS: EOS % 0.4 % (1.5-5.0); GRAN # 7.08 (1.4-6.5); GRAN % 73.9 % (50.0-68.0); HEMATOCRIT 42.1 % (42.0-52.0); LYMPH # 1.7 (1.2-3.4); LYMPH % 17.5 % (22.0-35.0); MEAN CELL VOLUME 88.6 fL (80.0-105.0); MEAN CORPUSCULAR HEMOGLOBIN 29.5 pg (25.0-35.0); MEAN CORPUSCULAR HGB CONC 33.3 g/dl (31.0-37.0); MONO # 0.8 (0.1-0.6); MONO % 8.2 % (1.0-6.0); PLATELET COUNT 252 10^3/uL (120.0-450.0); RED CELL DISTRIBUTION WIDTH 13.3 % (11.5-14.5); WHITE BLOOD COUNT 9.6 10^3/ul (4.5-11.0)
[2016-10-26 07:37] LABS: ALB/GLOB RATIO 1.5 (1.1-1.8); ALKALINE PHOSPHATASE 94 U/L (38-133); ALT/SGPT 60 U/L (7-56); AST/SGOT 36 U/L (15-59); BILIRUBIN,TOTAL 0.5 mg/dL (0.2-1.3); BLOOD UREA NITROGEN 11 mg/dL (7-21); CALCIUM 8.9 mg/dL (8.4-10.5); CARBON DIOXIDE 31 mmol/L (21-33); CHLORIDE 98 mmol/L (98-107); FREE T4 1.08 ng/dL (0.78-2.19); GFR AFRICAN-AMERICAN > 60; GLUCOSE,RANDOM 93 mg/dL (70-110); POTASSIUM 3.9 mmol/L (3.6-5.0); SODIUM 136 mmol/L (132-148); TOTAL PROTEIN 5.7 g/dL (5.8-8.3)
[2016-10-26 07:51] LABS: PROSTATE SPECIFIC ANTIGEN < 0.1 ng/mL (0.00-2.5); THYROID STIMULATING HORMONE 1.56 mIU/mL (0.46-4.68)
[2016-10-26] MEDS: cefTRIAXone 1 gm 1 GM/100 ML BAG IVPB SCH (09:20)
--- NOTE | 2016-10-26 09:36 | PN ---
PULMONARY PROGRESS NOTE DATE: 10/26/2016 SUBJECTIVE: The patient appears very comfortable this morning. He is not short of breath at rest. PHYSICAL EXAMINATION VITAL SIGNS: Temperature is 98.5, pulse is 88, respirations are 18, and last blood pressure recorded is 105/68. Oxygen saturation on room air is 96%. HEENT: Normocephalic and atraumatic. No JVD. CARDIOVASCULAR: Positive S1 and S2. No S3. LUNGS: Clear bilaterally. EXTREMITIES: Mild edema. No cyanosis and no clubbing. Calves are nontender to palpation. GASTROINTESTINAL: Abdomen is soft, nontender, and nondistended. Bowel sounds are positive. SKIN: No acute rash. NEUROLOGIC: Limited at the present time. IMPRESSION: 1. Acute bronchitis. 2. Chronic obstructive pulmonary disease. 3. Respiratory insufficiency. 4. Solitary pulmonary nodule, right lower lobe. PLAN: The patient appears very comfortable this morning. He is not short of breath at rest. He does continue to refuse oxygen therapy. On physical exam, his lungs remain clear. Oxygen saturation on room air is 96%. I will continue with current nebulizer treatments and oral steroids (decreased yesterday) for now. The patient remains on multiple antibiotics - which we can probably taper at this point in time. I did discuss the case with the night nurse at length. The night nurse stated that the patient is for probable transfer to a subacute institution in the next day or so. I would look to taper the steroids over the next week. I would also be happy to follow up the tiny pulmonary nodule - as an outpatient. At this point in time, no additional pulmonary intervention is needed or warranted. If there any additional pulmonary questions concerning this patient , I would be happy to reevaluate. Thank you for allowing me to participate in the care of this patient. Tone Greer MD IRMA
[2016-10-26] MEDS: Azithromycin 500MG/NS 250ml 500 MG/250 ML BAG IVPB SCH (10:56)
--- NOTE | 2016-10-26 16:33 | PN ---
SUBJECTIVE: The patient is an 86 years old black male with history of vitiligo, admitted with getting shortness of breath and cough; has been on IV steroids, antibiotics, doing well and was found to be confused. Otherwise, doing well, eating and tolerating. PHYSICAL EXAMINATION: VITAL SIGNS: The patient is afebrile, pulse 74, respirations 20, blood pressure 153/99. LUNGS: Bilateral fair airflow. No rhonchi or crackle. HEART: S1 and S2 audible. ABDOMEN: Soft and nontender. No rebound. No guarding. HEAD AND NECK: He has symmetrical face with spot of vitiligo, and he has right submandibular area lipoma. Surgical evaluation was requested, but the patient's family refused to be seen. LABORATORY DATA: WBC 9.6, hemoglobin 14, hematocrit 42, platelets 252. Chemistry: Sodium 136, potassium 3.9, chloride 98, CO2 of 31, BUN 11, creatinine 0.7, blood sugar of 93. LFTs are within normal limit. ASSESSMENT: 1. Improving bronchospasm. 2. Chronic obstructive pulmonary disease exacerbation, resolved. 3. Dementia and deconditioning. 4. Benign prostatic hyperplasia. PLAN: The patient has no bronchospasm at all. We will cut down his steroid to 20 daily. ancillary services manager are in the process of making arrangement for alf placement. The patient has positive blood culture but repeat are negative. Continue vancomycin and discontinue Zithromax The patient will receive Rocephin for another day and then we will continue him on vancomycin for total of 5 more days, and once the bed is available, I will make disposition plan. Zain Juarez MD
[2016-10-27] MEDS: Vancomycin 1gm in NS 250ml 1 GM/250 ML BAG IVPB SCH ×2 (01:48→15:46)
[2016-10-27] MEDS: Albuterol-Ipratrop 3 mg / 0.5 (3 ml) UD IH SCH ×4 (02:50→20:50)
[2016-10-27] MEDS: Pantoprazole 40 mg EC Tab PO SCH (06:49)
[2016-10-27] MEDS: cefTRIAXone 1 gm 1 GM/100 ML BAG IVPB SCH (09:51)
--- NOTE | 2016-10-27 14:57 | PN ---
DATE: SUBJECTIVE: The patient is an 86-year-old seen and examined, confused, disoriented, answers simple questions. Not in any distress. PHYSICAL EXAMINATION VITAL SIGNS: Afebrile, pulse 75, respirations 20, blood pressure 133/88. LUNGS: Bilateral fair air flow. No rhonchi or crackles. HEART: S1 and S2. Audible. ABDOMEN: Soft, nontender, no rebound, no guarding. NEUROLOGIC: He is awake and alert, but confused, disoriented. He has right submandibular lipoma that hampering his breathing. EXTREMITIES: Bilateral legs, no edema. LABORATORY DATA: There is no new labs available today. ASSESSMENT: 1. Dementia with intermittent agitation. 2. Chronic obstructive lung disease exacerbation, improving. 3. Deconditioning and difficulty walking. 4. Solitary pulmonary nodule in the right lower lung region, need to be followed. 5. Coagulase negative staph bacteremia, repeat cultures are negative. PLAN: The patient received 8 days of IV antibiotics. We will discontinue Rocephin, keep vancomycin for another 3 days and we will discontinue that. commissioner of relocation services are in the process of making arrangement for alf placement. Zain Juarez MD
[2016-10-28] MEDS: Vancomycin 1gm in NS 250ml 1 GM/250 ML BAG IVPB SCH ×2 (00:05→12:33)
[2016-10-28] MEDS: Albuterol-Ipratrop 3 mg / 0.5 (3 ml) UD IH SCH ×4 (03:00→21:15)
[2016-10-28] MEDS: Pantoprazole 40 mg EC Tab PO SCH (05:31)
[2016-10-29] MEDS: Vancomycin 1gm in NS 250ml 1 GM/250 ML BAG IVPB SCH ×2 (00:14→12:51)
[2016-10-29] MEDS: Albuterol-Ipratrop 3 mg / 0.5 (3 ml) UD IH SCH ×4 (02:45→21:10)
[2016-10-29] MEDS: Pantoprazole 40 mg EC Tab PO SCH (05:52)
--- NOTE | 2016-10-29 13:39 | PN ---
SUBJECTIVE: The patient is an 86 years old seen and examined, confused, not in any distress, no cough, no congestion. PHYSICAL EXAMINATION: VITAL SIGNS: He is afebrile, pulse rate 98, respirations 22, blood pressure 143/89. LUNGS: Bilateral good air flow. No rhonchi or crackles. HEART: S1 and S2. Audible. ABDOMEN: Soft, nontender, no rebound, no guarding. NEUROLOGIC: He is awake and alert, confused and disoriented. LABORATORY DATA: There is no new laboratory exam available. ASSESSMENT: 1. Dementia. 2. Chronic obstructive lung disease exacerbation. 3. Hypertension. 4. Resolving bronchitis. 5. Solitary pulmonary nodule. PLAN: The patient is clinically stable; awaiting transfer to long-term placement. Zain Juarez MD MTDD
--- NOTE | 2016-10-29 14:43 | PN ---
DATE: 10/29/2016 SUBJECTIVE: The patient's breathing is stable. No shortness of breath noted. PHYSICAL EXAMINATION: VITAL SIGNS: Blood pressure 143/89, heart rate is in the 90s. NECK: Negative JVD. LUNGS: Decreased breath sounds without rales. HEART: Reveal S1 and S2. EXTREMITIES: Without edema. LABORATORY Hemoglobin is 14. Chemistries are not done today. IMPRESSION 1. Exacerbation of chronic obstructive pulmonary disease. 2. Mild pulmonary hypertension. 3. Dementia. 4. Resolution of dyspnea. Given these findings, the patient is on continued antibiotics. Bronchodilators is controlling breathing well. . Gennaro Jang MD
[2016-10-30] MEDS: Vancomycin 1gm in NS 250ml 1 GM/250 ML BAG IVPB SCH ×3 (02:38→22:08)
[2016-10-30] MEDS: Albuterol-Ipratrop 3 mg / 0.5 (3 ml) UD IH SCH ×4 (03:10→19:26)
[2016-10-30] MEDS: Pantoprazole 40 mg EC Tab PO SCH (05:54)
--- NOTE | 2016-10-30 16:47 | CARD ---
APPROVED REPORT EXAM: Two-dimensional and M-mode echocardiogram with Doppler and color Doppler. INDICATION Dyspnea 2D DIMENSIONS IVSd0.7 (0.7-1.1cm)LVDd3.8 (3.9-5.9cm) PWd0.8 (0.7-1.1cm)LVDs2.3 (2.5-4.0cm) FS (%) 38.8 %LVEF (%)70.0 (>50%) M-Mode DIMENSIONS Aortic Root4.00 (2.2-3.7cm)Aortic Cusp Exc.1.90 (1.5-2.0cm) Aortic Valve AoV Peak Fivqtxww025.0cm/Kyara Peak GR.9mmHg Mitral Valve MV E Yomeadpm30.7cm/sMV A Vmscmzky09.3cm/sE/A ratio0.6 TDI Lateral E' Peak V8.68cm/sMedial E' Peak V8.87cm/sE/Lateral E'7.1 E/Medial E'7.0 Pulmonary Valve PV Peak Jgvluqkn65.6cm/sPV Peak Grad.2mmHg Tricuspid Valve TR Peak [id number] [id number] Peak Gr.30mmHg [id number] LEFT VENTRICLE The left ventricular function is normal. The left ventricular ejection fraction is within the normal range. RIGHT VENTRICLE The right ventricle is normal size. ATRIA The left atrium size is normal. The right atrium size is normal. AORTIC VALVE The aortic valve is thickened but opens well. MITRAL VALVE The mitral valve is thickened but opens well. TRICUSPID VALVE The tricuspid valve leaflets are thickened , but open well. There is mild tricuspid regurgitation. There is mild to moderate pulmonary hypertension. PULMONIC VALVE The pulmonic valve is not well visualized. PERICARDIAL EFFUSION There is no pericardial effusion. <Conclusion> Limited Study Good LV function Mild TR Mild pulmonary hypertension
--- NOTE | 2016-10-30 17:59 | PN ---
DATE: 10/28/2016 HISTORY OF PRESENT ILLNESS: The patient is an 86-year-old male admitted with agitation, COPD exacerbation, he also had deconditioning. CAT scan of the chest showed 1 single right lower lobe nodule. He has a mass on the right side of the neck likely lipoma. He is still disoriented and in no distress. Oral intake is poor. PAST MEDICAL HISTORY: COPD, hypertension, vertigo and degenerative disk disease. ALLERGIES: NO KNOWN DRUG ALLERGIES. MEDICATIONS: Aspirin 81 mg daily, prednisone 20 mg daily. FAMILY HISTORY: Noncontributory. PERSONAL HISTORY: He denies any smoking and no history of alcohol abuse. REVIEW OF SYSTEMS: As per HPI. PHYSICAL EXAMINATION: GENERAL: Confused, awake. VITAL SIGNS: Stable. Afebrile. Heart rate is 80 per minute, respiratory 18 per minute, blood pressure 110/70. LUNGS: Air entry present equal bilaterally. ABDOMEN: Soft, nontender. No hepatosplenomegaly. NEUROLOGIC: Awake, alert and confused. Able to communicate. SPINE: Nontender. EXTREMITIES: No edema. LABORATORY DATA: White count 6.4, hemoglobin 14, hematocrit 43 and platelet count 273. Sodium 138, potassium 3.9, blood sugar 103. ASSESSMENT: 1. Chronic obstructive pulmonary disease exacerbation. 2. Hypertension. 3. Right neck mass. 4. Mild dementia. 5. Vitiligo. PLAN: Currently stable. No distress. He is currently on IV steroid, nebulizer. Continue Dilantin 25 mg daily, lorazepam 0.5 mg b.i.d., Ativan 1 mg q. 6 hours p.r.n., lorazepam 0.5 mg p.o. at bedtime, Protonix 40 mg daily, prednisone 20 mg daily, vancomycin 1 g to continue b.i.d. Awaiting long-term placement. Discussed with the staff nurse. Yessenia Jane MD
--- NOTE | 2016-10-30 23:23 | PN ---
SUBJECTIVE: The patient is an 86-year-old seen and examined. Pleasantly confused. Sitting in chair, not in any distress. *------* eating and tolerating. PHYSICAL EXAMINATION: VITAL SIGNS: Afebrile, pulse 95, respirations 20, blood pressure 96/61. LUNGS: Bilateral fair airflow. No rhonchi or crackle. HEART: S1 and S2 audible. ABDOMEN: Soft, obese and nontender. NECK: She has right neck lipoma, moveable nontender. ASSESSMENT: 1. Dementia and deconditioning. 2. Resolved asthmatic bronchitis. 3. Right neck lipoma. 4. Chronic obstructive pulmonary disease. 5. Benign prostatic hypertrophy. PLAN: We will continue the patient on current medication that include Xanax as needed. He is on nebulizer treatment. Continue on Flomax, cut down his prednisone to 10 mg daily, continue *------*. His repeat blood cultures are negative. So I am going to discontinue vancomycin, since he is afebrile. Ordered for CBC and CMP in a.m. If his white count in normal, vancomycin will be discontinued. Zain Juarez MD
[2016-10-31] MEDS: Albuterol-Ipratrop 3 mg / 0.5 (3 ml) UD IH SCH ×4 (02:39→20:13)
[2016-10-31] MEDS: Pantoprazole 40 mg EC Tab PO SCH (05:31)
[2016-10-31 06:10] LABS: ADD MANUAL DIFF? NO
[2016-10-31 06:35] LABS: EOS % 0.2 % (1.5-5.0); GRAN # 7.04 (1.4-6.5); GRAN % 76.7 % (50.0-68.0); HEMATOCRIT 36.7 % (42.0-52.0); LYMPH # 1.3 (1.2-3.4); LYMPH % 14.6 % (22.0-35.0); MEAN CELL VOLUME 89.7 fl (80.0-105.0); MEAN CORPUSCULAR HEMOGLOBIN 29.6 pg (25.0-35.0); MEAN PLATELET VOLUME 9.7 fl (7.0-11.0); MONO # 0.8 (0.1-0.6); MONO % 8.5 % (1.0-6.0); PLATELET COUNT 255 10^3/uL (120.0-450.0); RED CELL DISTRIBUTION WIDTH 13.8 % (11.5-14.5); WHITE BLOOD COUNT 9.2 10^3/ul (4.5-11.0)
[2016-10-31 07:04] LABS: ALB/GLOB RATIO 1.1 (1.1-1.8); ALKALINE PHOSPHATASE 76 U/L (38-133); ALT/SGPT 63 U/L (7-56); AST/SGOT 29 U/L (15-59); BILIRUBIN,TOTAL 0.3 mg/dL (0.2-1.3); BLOOD UREA NITROGEN 15 mg/dL (7-21); CALCIUM 8.6 mg/dL (8.4-10.5); CARBON DIOXIDE 33 mmol/L (21-33); CHLORIDE 97 mmol/L (98-107); GFR AFRICAN-AMERICAN > 60; GLUCOSE,RANDOM 81 mg/dL (70-110); POTASSIUM 4.2 mmol/L (3.6-5.0); SODIUM 134 mmol/L (132-148); TOTAL PROTEIN 5.3 g/dL (5.8-8.3)
[2016-10-31] MEDS: Vancomycin 1gm in NS 250ml 1 GM/250 ML BAG IVPB SCH (09:02)
--- NOTE | 2016-10-31 12:57 | PN ---
SUBJECTIVE: The patient is an 86-year-old seen and examined. Seem to be confused, not at any distress. Eating and tolerating. PHYSICAL EXAMINATION: VITAL SIGNS: Afebrile, pulse 73, respirations 20, blood pressure 120/79. LUNGS: Bilateral fair airflow. No rhonchi or crackle. HEART: S1 and S2 audible. ABDOMEN: Soft and nontender. No rebound. No guarding. NEUROLOGIC: The patient is awake and alert, but confused and disoriented. LABORATORY DATA: WBC is 9.2, hemoglobin 12, hematocrit 36, platelet 255. Chemistry: Sodium 134, potassium 4.2, chloride 97, CO2 of 33, BUN 15, creatinine 0.7, blood sugar of 81. ASSESSMENT: 1. Advanced dementia. 2. Resolved asthmatic bronchitis. 3. Right neck lipoma. 4. Anxiety disorder. 5. Benign prostatic hypertrophy. 6. Positive blood culture for Coagulase-negative Staphylococcus. PLAN: So plan is I will discontinue vancomycin. Awaiting long-term placement as soon as bed is available, the patient will be discharged. Zain Juarez MD
[2016-11-01] MEDS: Albuterol-Ipratrop 3 mg / 0.5 (3 ml) UD IH SCH ×3 (01:15→13:59)
[2016-11-01] MEDS: Pantoprazole 40 mg EC Tab PO SCH (05:30)
--- NOTE | 2016-11-01 21:19 | PN ---
DATE: 11/01/2016 SUBJECTIVE: The patient is an 86-year-old male seen and examined, sitting in a chair, confused, disoriented, not in any distress, eating and tolerating. PHYSICAL EXAMINATION: VITAL SIGNS: Afebrile, pulse 85, respirations 20, and blood pressure 98/61. LUNGS: Bilateral fair airflow. No rhonchi or crackles. HEART: S1 and S2 audible. ABDOMEN: Soft, obese and nontender. No rebound. No guarding. NEUROLOGIC: The patient is awake and alert, but confused and disoriented. EXTREMITIES: Bilateral legs, no edema. LABORATORY DATA: WBC is 9.2, hemoglobin 12, hematocrit 36 and platelet 255. Chemistry: Sodium 134, potassium 4.2, chloride 97, CO2 of 33, BUN 15, creatinine 0.7 and blood sugar of 81. ASSESSMENT: 1. Dementia. 2. Deconditioning and difficulty walking. 3. Resolved asthmatic bronchitis. 4. Hypertension. 5. Tachycardia, etiology unclear. PLAN: We will taper down his atenolol since blood pressure is running high. web services developer are in the process of making arrangement for half-way placement. Once the bed is available, the patient will be discharged. Zain Jaurez MD
--- NOTE | 2016-11-02 14:35 | PN ---
DATE: SUBJECTIVE: The patient is 86 years old, seen and examined, sitting in chair, seems to be comfortable, not in any distress, eating, and tolerating. PHYSICAL EXAMINATION: VITAL SIGNS: Afebrile, pulse 103, respirations 20, and blood pressure 125/80. LUNGS: Bilateral fair airflow. No rhonchi or crackles. HEART: S1 and S2 audible. ABDOMEN: Soft and nontender. No rebound. No guarding. EXTREMITIES: He is awake, alert, confused, and disoriented. ASSESSMENT: 1. Status post asthmatic bronchitis. 2. Dementia with intermittent anxiety episode. 3. Benign prostatic hypertrophy. PLAN: We will discontinue prednisone. I will increase his atenolol 12.5 twice a day since his blood pressure is better now; however, he still have tachycardia. Social service is in the process of making arrangement for long-term care, paperwork in process. As soon as arrangement is made, the patient will be discharged. Zain Juarez MD
--- NOTE | 2016-11-03 12:23 | PN ---
SUBJECTIVE: The patient is an [id number] pleasantly confused. PHYSICAL EXAMINATION: GENERAL: The patient is awake, alert and oriented. VITAL SIGNS: He is afebrile, pulse 76, respirations 20, and blood pressure 114/74. LUNGS: Bilateral fair airflow. No rhonchi or crackles. HEART: S1 and S2 audible. ABDOMEN: Soft and nontender. No rebound. No guarding. NEUROLOGIC: The patient is awake and alert. Able to communicate, but confused and disoriented. ASSESSMENT: 1. Dementia. 2. Resolved asthmatic bronchitis. 3. Benign prostatic hypertrophy. PLAN: The patient is awaiting long-term placement. Paperwork in progress. As soon as arrangement is made, he will be discharged. Zain Juarez MD
--- NOTE | 2016-11-05 03:14 | PN ---
DATE: 11/04/2016 SUBJECTIVE: The patient has no complaints of any chest pain, no shortness of breath and no headache. PHYSICAL EXAMINATION: VITAL SIGNS: Temperature is 98.5, pulse of 86, blood pressure 102/62 and respirations 18. Vitals have been reviewed. GENERAL: The patient is lying in bed, flat, comfortable. HEENT: No oral lesion. Anicteric sclerae. Moist mucosa. NECK: No JVD, adenopathy, or thyromegaly. CARDIOVASCULAR: S1 and S2, regular. No murmurs, rubs, or gallops. LUNGS: Clear to auscultation bilaterally. No wheeze, rales, or rhonchi. ABDOMEN: Bowel sounds are positive, soft, nontender and nondistended. EXTREMITIES: No cyanosis, clubbing or edema. ASSESSMENT: 1. Dementia. 2. Benign prostatic hypertrophy. PLAN: The patient is currently comfortable. He is on Flomax for his BPH. The patient is on Ativan. The patient is going to continue with Atenolol. He is on BiPAP. He is on a heart healthy diet. Elliot Allen MD
--- NOTE | 2016-11-05 16:31 | PN ---
DATE: SUBJECTIVE: The patient is 86-year-old seen and examined sitting in chair, seems to be comfortable. No nausea, vomiting. No diarrhea. Eating and tolerating but confused and disoriented but not agitated. PHYSICAL EXAMINATION VITAL SIGNS: He is afebrile, pulse 50, respirations 20, and blood pressure 95/57. LUNGS: Bilateral fair airflow. No rhonchi or crackles. HEART: S1 and S2 audible. ABDOMEN: Soft, obese, and nontender. No rebound. No guarding. NEUROLOGIC: He is awake and alert. Able to communicate, but confused. ASSESSMENT: 1. Resolved asthmatic bronchitis. 2. History of benign prostatic hypertrophy. 3. Dementia. 4. Deconditioning and difficulty walking. PLAN: The patient is awaiting long-term placement. Family state, because of his increasing confusion, himself or other family members are not able to take care of him, so as soon as paperwork goes through insurance, we will make discharge.. Zain Juarez MD
--- NOTE | 2016-11-06 16:37 | PN ---
DATE: SUBJECTIVE: The patient is 86 years old, seen and examined, confused, disoriented, not in any acute distress, eating and tolerating. No nausea or diarrhea. No vomiting. PHYSICAL EXAMINATION: VITAL SIGNS: He is afebrile, pulse 89, respirations 20, and blood pressure 98/58. HEART: S1 and S2 audible. LUNGS: Bilateral good airflow. No rhonchi or crackles. ABDOMEN: Soft and nontender. No rebound. No guarding. NEUROLOGIC: The patient is awake and alert, able to communicate. ASSESSMENT: 1. Dementia. 2. Asthmatic bronchitis, resolved. 3. Deconditioning, difficulty walking. 4. Right neck lipoma. PLAN: The patient is currently medically stable. 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 Zain Juarez MD
[2016-11-07] MEDS ORDERED: Nystatin 100,000 Units/gm Topical Pow(15 gm) TOP PRN (09:44)
--- NOTE | 2016-11-07 20:36 | PN ---
DATE: 11/07/2016SUBJECTIVE: The patient is an 86-year-old, seen and examined. Sitting in chair, seems to be comfortable. As per nurse, he is agitated at times, trying to get out of bed. He tries to wander. Not in any acute distress. No nausea, vomiting or diarrhea. Eating and tolerating. PHYSICAL EXAMINATION VITAL SIGNS: He is afebrile. Pulse 80, respirations 20, blood pressure 119/76, LUNGS: Bilateral fair airflow. No rhonchi or crackles. HEART: S1, S2 audible. ABDOMEN: Soft, nontender. No rebound, no guarding. NEUROLOGICAL: The patient is awake and alert, able to communicate. LABORATORY EXAM: There is no new lab available today. ASSESSMENT: 1. Dementia. 2. Asthmatic bronchitis, improved. 3. Anxiety. 4. Palpitations. PLAN: Currently, the patient is on lorazepam as needed, Flomax 0.4 mg at bedtime, atenolol 12.5 mg twice a day. We will follow up this patient in a.m. Zain Juarez MD
--- NOTE | 2016-11-08 15:59 | PN ---
DATE: SUBJECTIVE: The patient is an 86-year-old seen and examined sitting in chair, comfortable, confused, disoriented. Ambulates with minimal assistance. Eating and tolerating. PHYSICAL EXAMINATION VITAL SIGNS: He is afebrile. Pulse 77, respirations 20, blood pressure 95/54. LUNGS: Bilateral fair air flow. No rhonchi or crackle. HEART: S1 and S2 audible. ABDOMEN: Soft, obese, nontender. No rebound. No guarding. NECK: He has lipoma nontender mass in the right neck, not affecting his respiration. No stridor noted. NEUROLOGIC: He is confused and disoriented. ASSESSMENT AND PLAN: 1. Dementia. 2. Resolved asthmatic bronchitis. 3. Disposition difficulty. 4. Deconditioning. 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 Zain Juarez MD
--- NOTE | 2016-11-09 17:16 | PN ---
SUBJECTIVE: The patient is an 86-year-old, seen and examined sitting in chair, seems to be comfortable, not in any distress, eating and tolerating. No chest pain. No shortness of breath. No nausea or vomiting. No diarrhea. PHYSICAL EXAMINATION: VITAL SIGNS: He is afebrile, pulse 86, respirations 20, and blood pressure 96/65. LUNGS: Bilateral fair airflow. No rhonchi or crackles. HEART: S1 and S2 audible. ABDOMEN: Soft and nontender. No rebound. No guarding. NEUROLOGIC: He is awake and alert, forgetful, confuse and disoriented to time and place. ASSESSMENT AND PLAN: 1. Dementia, unable to take care of himself. 2. Asthmatic bronchitis, resolved. 3. Right neck lipoma. 4. Deconditioning. PLAN: We will continue the patient on current medication, awaiting paperwork to go through for retirement placement . Zain Juarez MD
--- NOTE | 2016-11-10 15:57 | PN ---
SUBJECTIVE: The patient is an 86 years old seen and examined, sitting in chair, seems to be comfortable, not in any distress. He is confused and disoriented and answer simple question. PHYSICAL EXAMINATION: VITAL SIGNS: He is afebrile, pulse 79, respirations 20, and blood pressure 96/58. LUNGS: Bilateral fair air flow. No rhonchi or crackles. HEART: S1 and S2 audible. No murmur. ABDOMEN: Soft and nontender. No rebound. No guarding. NEUROLOGIC: The patient is awake and alert, communicative, but he is disoriented to time, place and person. ASSESSMENT: 1. Dementia. 2. Asthmatic bronchitis. 3. Neck lipoma, asymptomatic. PLAN: We will continue on current medication. Awaiting long-term placement. Zain Juarez MD
--- NOTE | 2016-11-11 15:05 | PN ---
SUBJECTIVE: The patient is 86 years old, seen and examined, doing well, sitting in chair. He states, "I'm enjoying my lunch well." PHYSICAL EXAMINATION: VITAL SIGNS: He is afebrile, pulse 91, respirations 20, blood pressure 100/57. LUNGS: Bilateral fair air flow. No rhonchi or crackles. HEART: S1 and S2 audible. ABDOMEN: Soft, nontender. No rebound. No guarding. NEUROLOGIC: He is awake and alert, confused, disoriented. ASSESSMENT AND PLAN: 1. Dementia. 2. Resolved bronchitis. 3. Hypertension. 4. Neck lipoma. PLAN: We will continue the patient on current medication, awaiting long-term placement. Zain Juarez MD
--- NOTE | 2016-11-12 16:47 | PN ---
SUBJECTIVE: The patient is an 86-year-old, seen and examined, sitting in chair. He is enjoying his breakfast. He states they . PHYSICAL EXAMINATION: VITAL SIGNS: He is afebrile, pulse 89, respirations 20, and blood pressure 114/85. LUNGS: Bilateral good air flow. No rhonchi or crackles. HEART: S1 and S2 audible. No murmur. ABDOMEN: Soft, obese, and nontender. No rebound. No guarding. NEUROLOGIC: The patient is awake and alert, but confused and disoriented. ASSESSMENT: 1. Right neck lymphoma. 2. Dementia. 3. Resolved bronchitis. 4. Deconditioning. 5. Difficulty walking. PLAN: Awaiting long-term placement. Zain Juarez MD
--- NOTE | 2016-11-13 22:48 | PN ---
DATE: 11/13/2016 SUBJECTIVE: The patient has no complaints of any chest pain, no shortness of breath and no headaches. PHYSICAL EXAMINATION: VITAL SIGNS: Temperature is 98.3, pulse of 89, blood pressure is 101/58 and respirations 20. GENERAL: The patient is lying in bed, flat, comfortable. HEENT: No oral lesion. Anicteric sclerae. Moist mucosa. NECK: No JVD, adenopathy, or thyromegaly. CARDIOVASCULAR: S1 and S2, regular. No murmurs, rubs, or gallops. LUNGS: Clear to auscultation bilaterally. No wheeze, rales, or rhonchi. ABDOMEN: Bowel sounds are positive, soft, nontender and nondistended. EXTREMITIES: no cyanosis, clubbing or edema. LABORATORY DATA: White count of 9.2, hemoglobin 12.1. Creatinine 0.7. ASSESSMENT: 1. Right neck lymphoma. 2. Dementia. 3. Gait dysfunction. 4. Benign prostatic hypertrophy. 5. Constipation. PLAN: The patient is currently comfortable. He is on Colace for his constipation. He is on Flomax for his BPH. He was given Risperdal for his agitation secondary to the dementia. he is currently comfortable and waiting for long-term care. Elliot Allen MD
[2016-11-14 07:20] LABS: ALB/GLOB RATIO 1.5 (1.1-1.8); ALKALINE PHOSPHATASE 117 U/L (38-133); ALT/SGPT 40 U/L (7-56); AST/SGOT 23 U/L (15-59); BILIRUBIN,TOTAL 0.3 mg/dL (0.2-1.3); BLOOD UREA NITROGEN 10 mg/dL (7-21); CALCIUM 8.6 mg/dL (8.4-10.5); CARBON DIOXIDE 30 mmol/L (21-33); CHLORIDE 102 mmol/L (98-107); GFR AFRICAN-AMERICAN > 60; GLUCOSE,RANDOM 73 mg/dL (70-110); POTASSIUM 4.1 mmol/L (3.6-5.0); SODIUM 138 mmol/L (132-148); TOTAL PROTEIN 5.4 g/dL (5.8-8.3)
[2016-11-14 07:33] LABS: HEMATOCRIT 36.1 % (42.0-52.0); MEAN CELL VOLUME 88.9 fl (80.0-105.0); MEAN CORPUSCULAR HEMOGLOBIN 29.6 pg (25.0-35.0); MEAN CORPUSCULAR HGB CONC 33.2 g/dl (31.0-37.0); MEAN PLATELET VOLUME 9.6 fl (7.0-11.0); RED CELL DISTRIBUTION WIDTH 13.4 % (11.5-14.5); WHITE BLOOD COUNT 4.5 10^3/ul (4.5-11.0)
--- NOTE | 2016-11-15 02:57 | PN ---
DATE: 11/14/2016 SUBJECTIVE: The patient is not complaining of any chest pain, shortness of breath, headaches, or dizziness. PHYSICAL EXAMINATION: VITAL SIGNS: Temperature is 97.9, pulse of 80, blood pressure 115/76 and respirations 18. GENERAL: The patient is lying in bed, flat, comfortable. HEENT: No oral lesion. Anicteric sclerae. Moist mucosa. NECK: No JVD, adenopathy, or thyromegaly. CARDIOVASCULAR: S1 and S2, regular. No murmurs, rubs, or gallops. LUNGS: Clear to auscultation bilaterally. No wheeze, rales, or rhonchi. ABDOMEN: Bowel sounds are positive, soft, nontender and nondistended. EXTREMITIES: No cyanosis, clubbing or edema. ASSESSMENT: 1. Right neck lymphoma. 2. Dementia, Alzheimer's type. 3. Gait dysfunction. 4. Benign prostatic hypertrophy. 5. Constipation. PLAN: The patient is currently comfortable. He is on lorazepam for anxiety. The patient is going to continue the Flomax. He does have episodes of confusion when he tries to ambulate. He does need redirection. He is on atenolol. He is going to continue with his statin. He is on BiPAP at night. He is eating well. He is waiting for discharge to a facility. Elliot Allen MD
--- NOTE | 2016-11-15 23:42 | PN ---
DATE: 11/15/2016 SUBJECTIVE: The patient has no complaints of any chest pain. No shortness of breath. No headaches or dizziness. PHYSICAL EXAMINATION VITAL SIGNS: Temperature is 97.3, pulse is 76, blood pressure is 116/79 and respirations are 20. GENERAL: The patient is lying in bed, flat, comfortable. HEENT: No oral lesion. Anicteric sclerae. Moist mucosa. NECK: No JVD, adenopathy, or thyromegaly. CARDIOVASCULAR: S1 and S2, regular. No murmurs, rubs, or gallops. LUNGS: Clear to auscultation bilaterally. No wheeze, rales, or rhonchi. ABDOMEN: Bowel sounds are positive, soft, nontender and nondistended. EXTREMITIES: No cyanosis, clubbing or edema. LABORATORY DATA: White count of 4.5, hemoglobin is 12 and creatinine is 0.6. ASSESSMENT: 1. Dementia, Alzheimer's type with agitation. 2. Right neck lymphoma. 3. Gait dysfunction. 4. Benign prostatic hypertrophy. 5. Constipation. PLAN: The patient is currently comfortable. He is on Flomax for his BPH. He is receiving atenolol. The patient is going to continue with his Colace for his constipation. He is on nystatin. The patient is going to continue with Risperdal. Waiting for discharge to the long-term care facility. Elliot Allen MD
--- NOTE | 2016-11-16 09:30 | PN ---
DATE: 11/16/2016 SUBJECTIVE: The patient has no complaints of any chest pain. No shortness of breath. No headaches. No dizziness. PHYSICAL EXAMINATION: VITAL SIGNS: Temperature is 98.6, pulse of 73, blood pressure 131/78, respirations 18. GENERAL: The patient is lying in bed, flat, comfortable. HEENT: No oral lesion. Anicteric sclerae. Moist mucosa. NECK: No JVD, adenopathy, or thyromegaly. CARDIOVASCULAR: S1 and S2, regular. No murmurs, rubs, or gallops. LUNGS: Clear to auscultation bilaterally. No wheeze, rales, or rhonchi. ABDOMEN: Bowel sounds are positive, soft, nontender and nondistended. EXTREMITIES: no cyanosis, clubbing or edema. ASSESSMENT: 1. Dementia, Alzheimer's type. 2. Right neck lymphoma. 3. Gait dysfunction. 4. Benign prostatic hypertrophy. 5. Constipation. PLAN: The patient is currently on Ativan as needed. We are going to continue on Flomax for his BPH. He is on Colace for his constipation. The patient is on Risperdal for his agitation. He is on atenolol. He is on regular diet and tolerating. Elliot Allen MD
--- NOTE | 2016-11-17 01:47 | CON ---
HISTORY OF PRESENT ILLNESS: An 86-year-old pleasant male, seen at bedside for consultation, evaluation and management of painful, elongated, thickened, fungal toe nails and painful hyperkeratotic lesions. PAST MEDICAL HISTORY: The patient's medical history is significant for advanced chronic obstructive pulmonary disease and osteoarthritis. HOME MEDICATIONS: Noted in MAR and include aspirin and prednisone. ALLERGIES: THE PATIENT HAS NO KNOWN DRUG ALLERGIES. SOCIAL HISTORY: The patient has a lifelong history of heavy smoking. Denies alcohol abuse and denies illicit drug use. FAMILY HISTORY: Unremarkable. SURGICAL HISTORY: The patient denies. PHYSICAL EXAMINATION VITAL SIGNS: Reveal a temperature of 97.9, pulse rate of 74, blood pressure of 87/51 and respiratory rate of 20. LABORATORY FINDINGS: Reveal white count of 4.5, hemoglobin of 12, hematocrit of 36.1 and platelet count 244. OBJECTIVE: Nonpalpable pedal pulses noted bilaterally. A +1 nonpitting lower extremity edema noted bilaterally. Absent pedal hair growth noted bilaterally. Lower extremity skin presents thin, shining, discolored bilaterally. The patient has diminished protected sensation using 5.07 g monofilament wire testing bilaterally. All nail plates were noted to be elongated, dystrophic, discolored with severe subungual fungal debris. There were noted to be pre-ulcerated hyperkeratotic lesions on both plantar aspects of each foot at the first metatarsophalangeal joint plantarly. ASSESSMENT: Peripheral arterial disease, painful onychomycosis, painful hyperkeratotic lesions. PLAN: The patient was examined. The patient was educated on the pedal risks associated with PAD and pedal self-treatment. Excisional debridement was performed on all nail plates and hyperkeratotic lesions. We will order ammonium nitrate lotion to hydrate both feet. Brandon Wang DPM [facility]
[2016-11-17] MEDS ORDERED: Nystatin-Triamcinolone Ointment(30 gm) TOP SCH ×2 (10:39→10:50)
[2016-11-17] MEDS: Nystatin-Triamcinolone Ointment(30 gm) TOP SCH (18:00)
[2016-11-18] MEDS: Nystatin-Triamcinolone Ointment(30 gm) TOP SCH ×2 (09:58→18:50)
[2016-11-19] MEDS: Nystatin-Triamcinolone Ointment(30 gm) TOP SCH ×2 (09:47→17:01)
[2016-11-20] MEDS: Nystatin-Triamcinolone Ointment(30 gm) TOP SCH ×2 (10:57→17:21)
--- NOTE | 2016-11-21 02:53 | PN ---
DATE: 11/20/2016 SUBJECTIVE: The patient has no complaints of any chest pain, no shortness of breath, no headache or dizziness. PHYSICAL EXAMINATION VITAL SIGNS: Temperature is 98.5, pulse is 90, blood pressure is 82/53 and respiration is 18. GENERAL: The patient is lying in bed, flat, comfortable. HEENT: No oral lesion. Anicteric sclerae. Moist mucosa. NECK: No JVD, adenopathy, or thyromegaly. CARDIOVASCULAR: S1 and S2, regular. No murmurs, rubs, or gallops. LUNGS: Clear to auscultation bilaterally. No wheeze, rales, or rhonchi. ABDOMEN: Bowel sounds are positive, soft, nontender and nondistended. EXTREMITIES: No cyanosis, clubbing or edema. ASSESSMENT AND PLAN: 1. Dementia, Alzheimer's type. 2. Neck lymphoma. 3. Gait dysfunction. 4. Benign prostatic hypertrophy. 5. Constipation. PLAN: The patient is going to be placed back on a one to one because he pulled out wires for the video recording. The patient is on Flomax. The patient is on atenolol. He is going to continue Risperdal. Elliot Allen MD
[2016-11-21] MEDS: Nystatin-Triamcinolone Ointment(30 gm) TOP SCH ×2 (10:48→17:10)
[2016-11-22] MEDS: Nystatin-Triamcinolone Ointment(30 gm) TOP SCH ×2 (11:30→18:05)
[2016-11-23] MEDS: Albuterol-Ipratrop 3 mg / 0.5 (3 ml) UD IH PRN (10:10)
[2016-11-23] MEDS: Nystatin-Triamcinolone Ointment(30 gm) TOP SCH ×2 (10:20→17:40)
[2016-11-24] MEDS: Albuterol-Ipratrop 3 mg / 0.5 (3 ml) UD IH PRN ×2 (04:48→13:01)
[2016-11-24] MEDS: Nystatin-Triamcinolone Ointment(30 gm) TOP SCH ×2 (09:46→19:35)
--- NOTE | 2016-11-24 22:46 | CP.PCM.PN ---
Subjective - Date & Time of Evaluation Date of Evaluation: 11/24/16 Time of Evaluation: 22:45 - Subjective Subjective: Patient was seen at bedside.As per nurse , he is trying to get out of bed, restless, does not follow orders. Has an order for Ativan 0.5 mg PO BiD. Not helping much. He is sitting on bed # 1. States that he wants to go home. Does not answer questions, keeps on staring. Medical record was reviewed. This 86 year old white male was brought to ER because he was sleepy, not eating well, not feeling well. Has PMH of COPD,HTN,chronic degenerative disc disease, mild dementia, right neck mass. Objective - Vital Signs/Intake and Output Vital Signs (last 24 hours): Temp Pulse Resp BP Pulse Ox 98.5 F 91 H 20 110/60 96 11/24/16 16:00 11/24/16 16:00 11/24/16 16:00 11/24/16 19:36 11/24/16 16:00 Intake and Output: 11/24/16 11/25/16 18:59 06:59 Intake Total 260 Balance 260 - Medications Medications: Current Medications Albuterol/Ipratropium (Duoneb 3 Mg/0.5 Mg (3 Ml) Ud) 3 ml IH Q2H PRN PRN Reason: Shortness of Breath Last Admin: 11/24/16 13:01 Dose: 3 ml Atenolol (Tenormin) 12.5 mg PO BID [facility] Last Admin: 11/24/16 19:36 Dose: 12.5 mg Docusate Sodium (Colace) 100 mg PO BID [facility] Last Admin: 11/24/16 19:35 Dose: 100 mg Lorazepam (Ativan) 0.5 mg PO BID PRN; Protocol PRN Reason: Anxiety Last Admin: 11/24/16 16:36 Dose: 0.5 mg Nystatin/Triamcinolone Acetonide (Nystatin/Triamcinolone Ointment) 1 gm TOP BID [facility] Last Admin: 11/24/16 19:35 Dose: 1 applic Risperidone (Risperdal Tab) 0.25 mg PO BID [facility] PRN Reason: Protocol Last Admin: 11/24/16 19:35 Dose: 0.25 mg Tamsulosin HCl (Flomax) 0.4 mg PO HS [facility] Last Admin: 11/24/16 22:20 Dose: 0.4 mg - Labs Labs: 11/14/16 07:00 11/14/16 06:30 - Constitutional Appears: Well, No Acute Distress - Head Exam Head Exam: ATRAUMATIC, NORMAL INSPECTION, NORMOCEPHALIC - Eye Exam Eye Exam: Normal appearance - ENT Exam ENT Exam: Normal External Ear Exam - Neck Exam Neck Exam: Normal Inspection - Respiratory Exam Respiratory Exam: NORMAL BREATHING PATTERN - Cardiovascular Exam Cardiovascular Exam: absent: JVD - GI/Abdominal Exam GI & Abdominal Exam: absent: Distended - Rectal Exam Rectal Exam: Deferred - Exam Additional comments: Deferred. - Extremities Exam Extremities Exam: Normal Inspection - Back Exam Back Exam: NORMAL INSPECTION - Neurological Exam Neurological Exam: Alert, Altered, Awake - Psychiatric Exam Psychiatric exam: Agitated - Skin Skin Exam: Normal Color Assessment and Plan - Assessment and Plan (Free Text) Assessment: Intermittent agitation. COPD. Mild dementia. HTN. Chronic degenerative disc disease. Plan: Ativan 1 mg PO stat. Continue present management.
--- NOTE | 2016-11-25 00:09 | PN ---
DATE: 11/24/2016 SUBJECTIVE: The patient has no complaints of any headache, dizziness. No nausea. PHYSICAL EXAMINATION: VITAL SIGNS: Temperature is 97.9, pulse is 77, blood pressure is 103/66 and respirations 20. GENERAL: The patient is lying in bed, flat, comfortable. HEENT: No oral lesion. Anicteric sclerae. Moist mucosa. NECK: No JVD, adenopathy, or thyromegaly. CARDIOVASCULAR: S1 and S2, regular. No murmurs, rubs, or gallops. LUNGS: Clear to auscultation bilaterally. No wheeze, rales, or rhonchi. ABDOMEN: Bowel sounds are positive, soft, nontender and nondistended. EXTREMITIES: no cyanosis, clubbing or edema. LABS: Creatinine 0.6. ASSESSMENT: 1. Dementia Alzheimer type. 2. Neck lymphoma. 3. Gait dysfunction. 4. Benign prostatic hypertrophy. 5. Constipation. PLAN: The patient is comfortable. He is on Colace for constipation. He is now continuing with Flomax for his BPH. He is on Risperidone. He is feeling well. Elliot Allen MD
[2016-11-25] MEDS: Nystatin-Triamcinolone Ointment(30 gm) TOP SCH ×2 (09:17→17:11)
[2016-11-25] MEDS: Albuterol-Ipratrop 3 mg / 0.5 (3 ml) UD IH PRN (10:27)
--- NOTE | 2016-11-25 11:51 | PN ---
DATE: 11/25/2016 SUBJECTIVE: The patient has no complaints of any chest pain or shortness of breath or headaches. PHYSICAL EXAMINATION: VITAL SIGNS: Temperature 98.3, pulse of 97, blood pressure 116/76, and respirations 22. GENERAL: The patient is lying in bed, flat, comfortable. HEENT: No oral lesion. Anicteric sclerae. Moist mucosa. NECK: No JVD, adenopathy, or thyromegaly. CARDIOVASCULAR: S1 and S2, regular. No murmurs, rubs, or gallops. LUNGS: Clear to auscultation bilaterally. No wheeze, rales, or rhonchi. ABDOMEN: Bowel sounds are positive, soft, nontender and nondistended. EXTREMITIES: No cyanosis, clubbing or edema. LABORATORY DATA: White count of 4.5 and hemoglobin 12.0. Creatinine 0.6. ASSESSMENT: 1. Dementia, Alzheimer's type. 2. Neck lymphoma. 3. Gait dysfunction. 4. Benign prostatic hypertrophy. 5. Constipation. PLAN: The patient is going to continue with atenolol. He is Risperdal for his agitation from dementia. He is on Flomax for his BPH. The patient is going to continue with same medications. Elliot Allen MD
[2016-11-26] MEDS: Nystatin-Triamcinolone Ointment(30 gm) TOP SCH ×2 (11:02→17:46)
--- NOTE | 2016-11-26 15:38 | PN ---
DATE: 11/26/2016 SUBJECTIVE: The patient has no complaints of any chest pain. No shortness of breath. No headaches. PHYSICAL EXAMINATION VITAL SIGNS: Temperature is 98.3, pulse is 93, blood pressure is 96/52, respirations 22. GENERAL: The patient is comfortable, in no acute distress. HEENT: Anicteric sclerae. Moist mucosa. NECK: No JVD or adenopathy. CARDIAC: S1, S2. No murmurs. No rubs. Regular. RESPIRATORY: Clear to auscultation bilaterally. No wheezes, rales, or rhonchi. Good air entry. ABDOMEN: Bowel sounds are positive, soft, nontender, and nondistended. EXTREMITIES: No edema. Has 1+ pulses. LABORATORY DATA: Creatinine is 0.6. White count of 4.5. ASSESSMENT: 1. Dementia, Alzheimer's type. 2. Neck lymphoma. 3. Gait dysfunction. 4. Benign prostatic hypertrophy. 5. Constipation. PLAN: The patient is currently comfortable. He is on Flomax for his constipation. He is going to continue with his Risperdal. He is on Ativan as needed. We will order blood work for tomorrow. He is waiting for discharge to long-term care facility. Elliot Allen MD
[2016-11-26] MEDS: Albuterol-Ipratrop 3 mg / 0.5 (3 ml) UD IH PRN (18:49)
--- NOTE | 2016-11-26 21:18 | CP.PCM.PN ---
Subjective - Date & Time of Evaluation Date of Evaluation: 11/26/16 Time of Evaluation: 21:00 - Subjective Subjective: Pt seen at the request of his RN because he is acting agitated ,wants to go home. He got Ativan O.5 mg po at about 6:45 PM,it has not helped. Pt is very un co operative,does not want to talk to me.Does not appear to be in any distress, He is currently waiting for placement. Chart reviewed. VS: stable PMH:COPD,HTN,DJD,R neck mass. Objective - Vital Signs/Intake and Output Vital Signs (last 24 hours): Temp Pulse Resp BP Pulse Ox 98.3 F 83 22 107/74 98 11/25/16 16:00 11/26/16 17:44 11/25/16 16:00 11/26/16 17:44 11/25/16 16:00 Intake and Output: 11/26/16 11/27/16 18:59 06:59 Intake Total 600 Balance 600 - Medications Medications: Current Medications Albuterol/Ipratropium (Duoneb 3 Mg/0.5 Mg (3 Ml) Ud) 3 ml IH Q2H PRN PRN Reason: Shortness of Breath Last Admin: 11/26/16 18:49 Dose: 3 ml Atenolol (Tenormin) 12.5 mg PO BID [facility] Last Admin: 11/26/16 17:44 Dose: 12.5 mg Docusate Sodium (Colace) 100 mg PO BID [facility] Last Admin: 11/26/16 17:44 Dose: 100 mg Lorazepam (Ativan) 0.5 mg PO BID PRN; Protocol PRN Reason: Anxiety Last Admin: 11/26/16 18:42 Dose: 0.5 mg Nystatin/Triamcinolone Acetonide (Nystatin/Triamcinolone Ointment) 1 gm TOP BID [facility] Last Admin: 11/26/16 17:46 Dose: 1 applic Risperidone (Risperdal Tab) 0.25 mg PO BID [facility] PRN Reason: Protocol Last Admin: 11/26/16 17:44 Dose: 0.25 mg Tamsulosin HCl (Flomax) 0.4 mg PO HS [facility] Last Admin: 11/25/16 21:38 Dose: 0.4 mg - Labs Labs: 11/14/16 07:00 11/14/16 06:30 - Constitutional Appears: No Acute Distress - Head Exam Head Exam: ATRAUMATIC, NORMAL INSPECTION, NORMOCEPHALIC - Eye Exam Eye Exam: PERRL - ENT Exam ENT Exam: Mucous Membranes Moist - Neck Exam Neck Exam: Full ROM Additional comments: soft mass noted on the R side of his neck - Respiratory Exam Respiratory Exam: Decreased Breath Sounds - Cardiovascular Exam Cardiovascular Exam: REGULAR RHYTHM, JVD (no JVDD) - GI/Abdominal Exam GI & Abdominal Exam: Soft. absent: Tenderness - Extremities Exam Extremities Exam: Normal Inspection - Neurological Exam Neurological Exam: Alert, Altered, Awake - Psychiatric Exam Psychiatric exam: Agitated - Skin Skin Exam: Dry, Warm Assessment and Plan - Assessment and Plan (Free Text) Assessment: Agitation Plan: Ativan 0.5 mg IM now
[2016-11-27 07:10] LABS: HEMATOCRIT 33.4 % (42.0-52.0); MEAN CELL VOLUME 88.6 fl (80.0-105.0); MEAN CORPUSCULAR HEMOGLOBIN 29.2 pg (25.0-35.0); MEAN CORPUSCULAR HGB CONC 32.9 g/dl (31.0-37.0); MEAN PLATELET VOLUME 8.9 fl (7.0-11.0); RED CELL DISTRIBUTION WIDTH 13.4 % (11.5-14.5); WHITE BLOOD COUNT 4.6 10^3/ul (4.5-11.0)
[2016-11-27] MEDS: Albuterol-Ipratrop 3 mg / 0.5 (3 ml) UD IH PRN (13:06)
[2016-11-28] MEDS: Nystatin-Triamcinolone Ointment(30 gm) TOP SCH ×2 (09:42→17:52)
[2016-11-28] MEDS: Albuterol-Ipratrop 3 mg / 0.5 (3 ml) UD IH PRN (14:44)
[2016-11-29] MEDS: Nystatin-Triamcinolone Ointment(30 gm) TOP SCH ×2 (10:15→19:07)
[2016-11-29] MEDS: Albuterol-Ipratrop 3 mg / 0.5 (3 ml) UD IH PRN (18:14)
[2016-11-30] MEDS: Albuterol-Ipratrop 3 mg / 0.5 (3 ml) UD IH PRN (09:46)
--- NOTE | 2016-12-01 00:05 | CP.PCM.PN ---
Subjective - Date & Time of Evaluation Date of Evaluation: 12/01/16 Time of Evaluation: 00:04 - Subjective Subjective: Patient seen at bedside. He is sitting in the bed, drinking coffee. Is confused.States that this is October. Can not tell what year is this and can not tell what year is this. States that he wants to go home. Has no other complaints. 86 year old white male was brought to ER because he was not feeling well , sleepy, not eating well. PMH of HTN, COPD,chronic degenerative disc disease, mild dementia, right neck mass. Objective - Vital Signs/Intake and Output Vital Signs (last 24 hours): Temp Pulse Resp BP Pulse Ox 97.5 F L 107 H 20 108/72 96 11/30/16 16:00 11/30/16 16:00 11/30/16 16:00 11/30/16 16:00 11/30/16 16:00 Intake and Output: 11/30/16 12/01/16 18:59 06:59 Intake Total 650 420 Balance 650 420 - Medications Medications: Current Medications Albuterol/Ipratropium (Duoneb 3 Mg/0.5 Mg (3 Ml) Ud) 3 ml IH Q2H PRN PRN Reason: Shortness of Breath Last Admin: 11/30/16 09:46 Dose: 3 ml Atenolol (Tenormin) 12.5 mg PO BID [facility] Last Admin: 11/30/16 17:46 Dose: 12.5 mg Lorazepam (Ativan) 0.5 mg PO TID [facility] PRN Reason: Protocol Last Admin: 11/30/16 17:46 Dose: 0.5 mg Nystatin/Triamcinolone Acetonide (Nystatin/Triamcinolone Ointment) 1 gm TOP BID [facility] Last Admin: 11/29/16 19:07 Dose: Not Given Prednisone (Prednisone Tab) 20 mg PO DAILY [facility]UDMIL[facility] Last Admin: 11/30/16 09:43 Dose: 20 mg Risperidone (Risperdal Tab) 0.25 mg PO BID [facility]UD[facility]ILA PRN Reason: Protocol Last Admin: 11/30/16 17:46 Dose: 0.25 mg - Labs Labs: 11/27/16 06:55 11/14/16 06:30 Laboratory Last Values WBC 4.6 10^3/ul (4.5-11.0) 11/27/16 06:55 RBC 3.77 10^6/uL (3.5-6.1) 11/27/16 06:55 Hgb 11.0 g/dL (14.0-18.0) L 11/27/16 06:55 Hct 33.4 % (42.0-52.0) L 11/27/16 06:55 MCV 88.6 fl (80.0-105.0) 11/27/16 06:55 MCH 29.2 pg (25.0-35.0) 11/27/16 06:55 MCHC 32.9 g/dl (31.0-37.0) 11/27/16 06:55 RDW 13.4 % (11.5-14.5) 11/27/16 06:55 Plt Count 261 10^3/uL (120.0-450.0) 11/27/16 06:55 MPV 8.9 fl (7.0-11.0) 11/27/16 06:55 Gran % 76.7 % (50.0-68.0) H 10/31/16 05:30 Lymph % (Auto) 14.6 % (22.0-35.0) L 10/31/16 05:30 [place] % (Auto) 8.5 % (1.0-6.0) H 10/31/16 05:30 Eos % (Auto) 0.2 % (1.5-5.0) L 10/31/16 05:30 Baso % (Auto) 0.0 % (0.0-3.0) 10/31/16 05:30 Gran # 7.04 (1.4-6.5) H 10/31/16 05:30 Lymph # 1.3 (1.2-3.4) 10/31/16 05:30 [place] # 0.8 (0.1-0.6) H 10/31/16 05:30 Eos # 0.0 (0.0-0.7) 10/31/16 05:30 Baso # 0.00 K/mm3 (0.0-2.0) 10/31/16 05:30 pCO2 51 mm/Hg (35-45) H 10/22/16 09:10 pO2 57.0 mm/Hg (80-100) L 10/22/16 09:10 HCO3 30.2 mmol/L (21-28) H 10/22/16 09:10 ABG pH 7.38 (7.35-7.45) 10/22/16 09:10 ABG Total CO2 31.8 mmol.L (22-28) H 10/22/16 09:10 ABG O2 Saturation 92.8 % (95-98) L 10/22/16 09:10 ABG O2 Content 16.0 ML/dl (15-23) 10/22/16 09:10 ABG Base Excess 4.0 mmol/L (-2.0-3.0) H 10/22/16 09:10 ABG Hemoglobin 12.6 g/dL (11.7-17.4) 10/22/16 09:10 ABG Carboxyhemoglobin 1.6 % (0.5-1.5) H 10/22/16 09:10 POC ABG HHb (Measured) 7.0 % (0-5) H 10/22/16 09:10 ABG Methemoglobin 0.9 % (0.0-3.0) 10/22/16 09:10 ABG O2 Capacity 17.2 mL/dl (16-24) 10/22/16 09:10 VBG pH 7.22 (7.32-7.43) L 10/19/16 20:35 VBG pCO2 90.0 (40-60) H* 10/19/16 20:35 VBG HCO3 36.8 mmol/l (21-28) H 10/19/16 20:35 VBG Total CO2 39.6 mmol.L (22-28) H 10/19/16 20:35 VBG O2 Sat (Calc) 64.8 % (40-65) 10/19/16 20:35 VBG Base Excess 5.4 mmol/L (0.0-2.0) H 10/19/16 20:35 VBG Potassium 4.0 mmol/L (3.6-5.2) 10/19/16 20:35 Hgb O2 Saturation 90.5 % (95.0-98.0) L 10/22/16 09:10 Sodium 137.0 mmol/L (132-148) 10/19/16 20:35 Chloride 99.0 mmol/L (98-107) 10/19/16 20:35 Glucose 105 mg/dl (75-110) 10/19/16 20:35 Lactate 1.1 mmol/L (0.7-2.1) 10/19/16 20:35 FiO2 21.0 % 10/22/16 09:10 Sodium 138 mmol/L (132-148) 11/14/16 06:30 Potassium 4.1 mmol/L (3.6-5.0) 11/14/16 06:30 Chloride 102 mmol/L (98-107) 11/14/16 06:30 Carbon Dioxide 30 mmol/L (21-33) 11/14/16 06:30 Anion Gap 10 (10-20) 11/14/16 06:30 BUN 10 mg/dL (7-21) 11/14/16 06:30 Creatinine 0.6 mg/dL (0.5-1.4) 11/14/16 06:30 Est GFR ( Amer) > 60 11/14/16 06:30 Est GFR (Non-Af Amer) > 60 11/14/16 06:30 Random Glucose 73 mg/dL (70-110) 11/14/16 06:30 Calcium 8.6 mg/dL (8.4-10.5) 11/14/16 06:30 Total Bilirubin 0.3 mg/dL (0.2-1.3) 11/14/16 06:30 AST 23 U/L (15-59) 11/14/16 06:30 ALT 40 U/L (7-56) 11/14/16 06:30 Alkaline Phosphatase 117 U/L (38-133) 11/14/16 06:30 Lactate Dehydrogenase 441 U/L (333-699) 10/19/16 20:35 Total Creatine Kinase 37 U/L (35-230) 10/19/16 20:35 Troponin I < 0.01 ng/mL 10/19/16 20:35 NT-Pro-B Natriuret Pep 84.6 pg/mL (0-450) 10/19/16 20:35 Total Protein 5.4 g/dL (5.8-8.3) L 11/14/16 06:30 Albumin 3.2 g/dL (3.0-4.8) 11/14/16 06:30 Globulin 2.2 gm/dL 11/14/16 06:30 Albumin/Globulin Ratio 1.5 (1.1-1.8) 11/14/16 06:30 Prostate Specific Ag < 0.1 ng/mL (0.00-2.5) 10/26/16 06:15 Free T4 1.08 ng/dL (0.78-2.19) 10/26/16 06:15 TSH 3rd Generation 1.56 mIU/mL (0.46-4.68) 10/26/16 06:15 Venous Blood Potassium 4.0 mmol/L (3.6-5.2) 10/19/16 20:35 - Constitutional Appears: Well, No Acute Distress - Head Exam Head Exam: ATRAUMATIC, NORMAL INSPECTION, NORMOCEPHALIC - Eye Exam Eye Exam: Normal appearance - ENT Exam ENT Exam: Normal External Ear Exam - Neck Exam Neck Exam: Normal Inspection - Respiratory Exam Respiratory Exam: NORMAL BREATHING PATTERN - Cardiovascular Exam Cardiovascular Exam: absent: JVD - GI/Abdominal Exam GI & Abdominal Exam: absent: Distended - Rectal Exam Rectal Exam: Deferred - Exam Additional comments: Deferred. - Extremities Exam Extremities Exam: Normal Inspection - Back Exam Back Exam: NORMAL INSPECTION - Neurological Exam Neurological Exam: Altered - Psychiatric Exam Psychiatric exam: Agitated - Skin Skin Exam: Normal Color Assessment and Plan - Assessment and Plan (Free Text) Assessment: Agitation. HTN. COPD. Mild dementia. Chronic degenerative disc disease. Plan: Ativan 1 mg po x 1. Continue present management.
[2016-12-01] MEDS: Nystatin-Triamcinolone Ointment(30 gm) TOP SCH ×2 (11:00→18:35)
[2016-12-01] MEDS: Albuterol-Ipratrop 3 mg / 0.5 (3 ml) UD IH PRN (18:26)
[2016-12-02] MEDS: Nystatin-Triamcinolone Ointment(30 gm) TOP SCH (12:06)
--- NOTE | 2016-12-04 17:39 | PN ---
SUBJECTIVE: The patient is an 86-year-old male with history of leukoderma, sitting in chair, seems to be comfortable as per nurse, get agitated at times, awaiting long-term placement. PHYSICAL EXAMINATION: GENERAL: He is awake and alert, confused, disoriented. VITAL SIGNS: He is afebrile, pulse 70, respirations 19, blood pressure 99/68. LUNGS: Bilateral fair air flow. No rhonchi or crackles. HEART: S1 and S2 audible. ABDOMEN: Soft, nontender. No rebound. No guarding. NEUROLOGIC: He is awake and alert but confused, disoriented. ASSESSMENT: 1. Dementia with agitation. 2. Right-sided neck lipoma. 3. Unstable gait and deconditioning with difficulty walking. 4. Benign prostatic hypertrophy. PLAN: We will give the patient Ativan and Risperdal as needed, awaiting long-term placement. As soon as arrangement is made, the patient will be discharged. Zain Juarez MD
[2016-12-05] MEDS: Nystatin 100,000 Units/gm Cream(15 gm) TOP SCH ×2 (11:30→13:44)
--- NOTE | 2016-12-05 14:33 | PN ---
DATE: SUBJECTIVE: The patient is an 86 years old, seen and examined, sitting in chair, eating his lunch. Offers no complaint. No nausea or vomiting and no diarrhea. No fever. No chills. PHYSICAL EXAMINATION: VITAL SIGNS: He is afebrile, pulse is 76, respirations are 20, and blood pressure is 121/83. LUNGS: Bilateral fair air flow. No rhonchi or crackles. HEART: S1 and S2 audible. ABDOMEN: Soft and nontender. No rebound. No guarding. NEUROLOGIC: The patient is awake and alert, able to communicate. Ambulates with help. ASSESSMENT AND PLAN: 1. Dementia. 2. Deconditioning and difficulty walking. 3. Right-sided neck lipoma. 4. Asthmatic bronchitis seemed to be improving. 5. Dementia with agitation. PLAN: We will continue the patient on current medical treatment. Awaiting long-term placement. Zain Juarez MD
[2016-12-06 08:18] VITALS: RESP 20
[2016-12-06] MEDS: Nystatin 100,000 Units/gm Cream(15 gm) TOP SCH ×3 (10:19→17:43)
--- NOTE | 2016-12-06 15:09 | PN ---
SUBJECTIVE: The patient is an 86 years old, seen and examined, sitting in chair, seems to be comfortable, not in any distress and disoriented to time and place. PHYSICAL EXAMINATION: VITAL SIGNS: The patient is afebrile, pulse 88, respirations 20, and blood pressure 138/97. LUNGS: Bilateral fair air flow. No rhonchi or crackles. HEART: S1 and S2 audible. ABDOMEN: Soft and nontender. No rebound. No guarding. NEUROLOGIC: The patient is awake and alert, able to communicate, but confused and disoriented, agitated at times. LABORATORY EXAM: There is no new lab available today. ASSESSMENT: 1. Dementia with agitation at times. 2. Resolved bronchitis. 3. Borderline hypertension. PLAN: We will discontinue the patient's prednisone. Continue nebulizer treatment as needed. Awaiting [facility] placement as well as arrangement to be made. He will be transferred to long win[facility] tender facility. Zain Juarez MD
[2016-12-07 06:50] VITALS: BP 135/80; PULSE 90; O2SAT 97
[2016-12-07 08:19] VITALS: TEMP 98
[2016-12-07] MEDS: Nystatin 100,000 Units/gm Cream(15 gm) TOP SCH (10:25)
--- NOTE | 2016-12-07 17:28 | DS ---
HISTORY OF PRESENT ILLNESS: The patient is [id number] who was admitted initially with cough, congestion, shortness of breath on 10/19/2016. The patient had altered mental status. His dementia has been deteriorating and family was unable to care of him at home and the patient is not able to care for himself. 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 He was awaiting middle or intermediate school principal bed that is available today, so the patient is being discharged today. PHYSICAL EXAMINATION: GENERAL: He is awake and alert, but confused, disoriented. VITAL SIGNS: Afebrile, pulse 90, respirations 20, blood pressure 135/80. LUNGS: Bilateral good air flow. No rhonchi or crackles. HEART: S1 and S2 audible. ABDOMEN: Soft, nontender. No rebound, no guarding. NEUROLOGIC: The patient is awake and alert, but confused, disoriented. ASSESSMENT: 1. Advanced dementia. 2. Right-sided neck lipoma. 3. Hypertension. 4. Hyperlipidemia. PLAN: The patient's prednisone has been discontinued. He will be discharged to middle or intermediate school principal care. He will be discharged on Risperdal and Ativan as needed. Zain Juarez MD
== END 2016-12-07 12:07 | DRG 191 ==
LOC: ED 18:50 → ERH 23:53 → 2RNO 10-20 04:14 → 2RSO 10-20 04:30 → 5RNO 10-21 19:43 → 5RSO 11-02 23:48 → 5RNO 11-19 06:15
PROVIDERS: ADMIT Internal Medicine; ATTEND Internal Medicine
PROC: 5A09557 Assistance with Respiratory Ventilation, Greater than 96 Consecutive Hours, Continuous Positive Airway Pressure (ICD-10-PCS; principal; 2016-10-20)
PROC: 3E0F7GC Introduction of Other Therapeutic Substance into Respiratory Tract, Via Natural or Artificial Opening (ICD-10-PCS; 2016-10-20)
PROC: 0HBRXZZ Excision of Toe Nail, External Approach (ICD-10-PCS; 2016-11-16)
PROC: 0HBRXZZ Excision of Toe Nail, External Approach (ICD-10-PCS; 2016-11-16)
PROC: 0HBRXZZ Excision of Toe Nail, External Approach (ICD-10-PCS; 2016-11-16)
PROC: 0HBRXZZ Excision of Toe Nail, External Approach (ICD-10-PCS; 2016-11-16)
PROC: 0HBRXZZ Excision of Toe Nail, External Approach (ICD-10-PCS; 2016-11-16)
PROC: 0HBRXZZ Excision of Toe Nail, External Approach (ICD-10-PCS; 2016-11-16)
PROC: 0HBRXZZ Excision of Toe Nail, External Approach (ICD-10-PCS; 2016-11-16)
PROC: 0HBRXZZ Excision of Toe Nail, External Approach (ICD-10-PCS; 2016-11-16)
PROC: 0HBRXZZ Excision of Toe Nail, External Approach (ICD-10-PCS; 2016-11-16)
PROC: 0HBRXZZ Excision of Toe Nail, External Approach (ICD-10-PCS; 2016-11-16)
DX: J44.1 Chronic obstructive pulmonary disease with (acute) exacerbation (principal); E87.2 Acidosis; I27.2 Other secondary pulmonary hypertension; G30.9 Alzheimer's disease, unspecified; F02.80 Dementia in other diseases classified elsewhere, unspecified severity, without behavioral disturbance, psychotic disturbance, mood disturbance, and anxiety; B35.1 Tinea unguium; I10 Essential (primary) hypertension; J20.9 Acute bronchitis, unspecified; J44.0 Chronic obstructive pulmonary disease with (acute) lower respiratory infection; I73.9 Peripheral vascular disease, unspecified; L80 Vitiligo; R91.1 Solitary pulmonary nodule; D17.0 Benign lipomatous neoplasm of skin and subcutaneous tissue of head, face and neck; L57.0 Actinic keratosis; F41.9 Anxiety disorder, unspecified; E78.5 Hyperlipidemia, unspecified; N40.0 Benign prostatic hyperplasia without lower urinary tract symptoms; R26.2 Difficulty in walking, not elsewhere classified; R00.0 Tachycardia, unspecified; K59.00 Constipation, unspecified; M19.90 Unspecified osteoarthritis, unspecified site; Z79.82 Long term (current) use of aspirin; Z79.52 Long term (current) use of systemic steroids; Z87.891 Personal history of nicotine dependence

== ENCOUNTER 2017-01-03 18:38 | Inpatient (IN) | payer MEDICARE, OTHER ==
[2017-01-03] MEDS ORDERED: Magnesium Sulfate 2 GM in Sodium Chloride 0.9% 100 ML IVPB ONE (18:50)
--- NOTE | 2017-01-03 19:04 | ED PDOC ---
Arrival/HPI - General Chief Complaint: Shortness Of Breath Time Seen by Provider: 01/03/17 18:42 Historian: Patient, EMS - Critical Care Critical Care Minutes: 30 minutes - History of Present Illness Narrative History of Present Illness (Text): 01/03/17 18:53 A 86 year old male, whose past medical history includes COPD, is brought in by EMS from [facility] and presents to the emergency department complaining of shortness of breath. Patient is a poor historian. Patient's oxygen saturation level was in the 80s range. He was given albuterol treatment in [facility], but had no progress so he was sent here to the ER. Patient vomited once in the ER upon arrival and experiencing cough, but denies of any fever, chills, nausea , abdominal pain, chest pain, back pain, or any other complaints. PMD: Dr. Gan Past Medical History - Provider Review Nursing Documentation Reviewed: Yes - Cardiac Hx Cardiac Disorders: Yes Hx Hypertension: Yes - Pulmonary Hx Respiratory Disorders: Yes Hx Chronic Obstructive Pulmonary Disease (COPD): Yes - Neurological Hx Neurological Disorder: Yes Hx Alzheimer's Disease: Yes - HEENT Hx HEENT Disorder: No - Renal Hx Renal Disorder: No - Endocrine/Metabolic Hx Endocrine Disorders: No - Hematological/Oncological Hx Blood Disorders: No - Integumentary Hx Dermatological Disorder: No - Musculoskeletal/Rheumatological Hx Musculoskeletal Disorders: No Hx Falls: No - Gastrointestinal Hx Gastrointestinal Disorders: No - Genitourinary/Gynecological Hx Genitourinary Disorders: No - Psychiatric Hx Psychophysiologic Disorder: No Hx Substance Use: No Family/Social History - Physician Review Nursing Documentation Reviewed: Yes Family/Social History: No Known Family HX Smoking Status: Unknown If Ever Smoked Hx Alcohol Use: No Hx Substance Use: No Allergies/Home Meds Allergies/Adverse Reactions: Allergies No Known Allergies Allergy (Verified 01/03/17 18:47) Home Medications: Home Meds Medication Instructions Recorded Confirmed Donepezil [Aricept] 10 mg PO DAILY 01/03/17 01/03/17 LORazepam [Ativan] 0.25 mg PO TID PRN 01/03/17 01/03/17 Review of Systems - Physician Review All systems were reviewed & negative as marked: Yes - Review of Systems Constitutional: absent: Fevers, Night Sweats Respiratory: SOB, Cough Cardiovascular: absent: Chest Pain Gastrointestinal: Vomiting (vomited once in the ER upon arrival). absent: Abdominal Pain Musculoskeletal: absent: Back Pain Physical Exam Vital Signs Reviewed: Yes Vital Signs Temp Pulse Resp BP Pulse Ox 01/03/17 22:20 91 H 20 109/63 100 01/03/17 21:03 116/61 01/03/17 21:00 118 H 20 116/61 99 01/03/17 19:01 98.2 F 95 H 18 103/65 96 01/03/17 18:49 92 L Temperature: Afebrile Blood Pressure: Normal Pulse: Regular Respiratory Rate: Normal Appearance: Positive for: Well-Appearing Pain Distress: None Mental Status: Positive for: Alert and Oriented X 3 - Systems Exam Head: Present: Atraumatic, Normocephalic Pupils: Present: PERRL Extroacular Muscles: Present: EOMI Conjunctiva: Present: Normal Mouth: Present: Moist Mucous Membranes Neck: Present: Normal Range of Motion Respiratory/Chest: Present: Wheezes (retraction +1), Decreased Breath Sounds Cardiovascular: Present: Regular Rate and Rhythm, Normal S1, S2. No: Murmurs Abdomen: Present: Normal Bowel Sounds. No: Tenderness, Distention, Peritoneal Signs Back: Present: Normal Inspection Upper Extremity: Present: Normal Inspection. No: Cyanosis, Edema Lower Extremity: Present: Normal Inspection. No: Edema Neurological: Present: GCS=15, CN II-XII Intact, Speech Normal Skin: Present: Warm, Dry, Normal Color. No: Rashes Psychiatric: Present: Alert, Oriented x 3, Normal Insight, Normal Concentration Medical Decision Making ED Course and Treatment: 01/03/17 18:57 Impression: 86 year old male with shortness of breath and chest pain. Physical exam shows wheezing with +1 retraction, and decreased breath sounds. Differential Diagnosis included but are not limited to: COPD Exacerbation vs. Pneumonia Plan: -- EKG -- Chest X-ray -- Labs -- Duoneb -- Magnesium Sulfate IV Fluids -- Medrol -- Blood Culture -- Blood Gas -- Reassess and disposition Prior Visits: Notes and results from previous visits were reviewed. Patient was last seen in the emergency department on 10/19/2016 for shortness of breath. Patient was admitted. Progress Notes: EKG: Ordered, reviewed, and independently interpreted the EKG. Rate : 96 BPM Rhythm : NSR Interpretation : Bifasc Comparison : No previous EKG for comparison. 01/03/17 21:[address] Gan who agrees to admit patient under her service. Consult Suhail since he was on for this patient on last admission. Consult Dr. Garrett for pulmonology. 01/03/17 22:27 Dr. Watson, Welding Manager came to evaluate patient and agreed patient can be placed on Telemetry. - Critical Care Critical Care Minutes: 30 minutes - Lab Interpretations Lab Results: 01/03/17 19:20 01/03/17 19:20 Lab Results 01/03/17 20:30: pCO2 63 H, pO2 136.0 H, HCO3 33.2 H, ABG pH 7.33 L, ABG Total CO2 35.1 H, ABG O2 Saturation 99.6 H, ABG O2 Content 18.6, ABG Base Excess 5.3 H , ABG Hemoglobin 13.5, ABG Carboxyhemoglobin 1.9 H, POC ABG HHb (Measured) 0.4, ABG Methemoglobin 1.0, ABG O2 Capacity 18.7, Hgb O2 Saturation 96.6, FiO2 40.0 01/03/17 19:20: Sodium 128 L, Chloride 89 L, Potassium 4.0, Carbon Dioxide 35 H , Anion Gap 8 L, BUN 10, Creatinine 0.7 L, Est GFR ( Amer) > 60, Est GFR (Non-Af Amer) > 60, Random Glucose 160 H, Calcium 9.1, Lactate Dehydrogenase 470 , Total Creatine Kinase 93, Troponin I 0.16 H* D, NT-Pro-B Natriuret Pep 2490 H 01/03/17 19:20: pO2 26 L, VBG pH 7.27 L, VBG pCO2 80.0 H*, VBG HCO3 36.7 H, VBG Total CO2 39.2 H, VBG O2 Sat (Calc) 52.1, VBG Base Excess 6.8 H, VBG Potassium 4.5, Sodium 128.0 L, Chloride 90.0 L, Glucose 165 H, Lactate 1.4, FiO2 21.0, Venous Blood Potassium 4.5 01/03/17 19:20: WBC 5.8 D, RBC 4.43, Hgb 13.4 L D, Hct 38.9 L, MCV 87.8, MCH 30.2, MCHC 34.4, RDW 13.2, Plt Count 302, MPV 9.5, Gran % 58.8, Lymph % (Auto) 24.2, [place] % (Auto) 12.7 H, Eos % (Auto) 4.1, Baso % (Auto) 0.2, Gran # 3.42, Lymph # 1.4, [place] # 0.7 H, Eos # 0.2, Baso # 0.01 I have reviewed the lab results: Yes Interpretation: Abnormal lab values - RAD Interpretation Radiology Orders: 01/03/17 18:49 CHEST PORTABLE [RAD] Stat [employer] 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 - Medication Orders Current Medication Orders: Albuterol/Ipratropium (Duoneb 3 Mg/0.5 Mg (3 Ml) Ud) 3 ml IH Q3H PRN PRN Reason: Shortness of Breath Ondansetron HCl (Zofran Inj) 4 mg IVP Q4H PRN PRN Reason: Nausea/Vomiting Discontinued Medications Albuterol/Ipratropium (Duoneb 3 Mg/0.5 Mg (3 Ml) Ud) 3 ml IH Q15M LIUDMILA Stop: 01/03/17 19:31 Last Admin: 01/03/17 19:34 Dose: 3 ml Aspirin (Aspirin) 325 mg PO STAT STA Stop: 01/03/17 21:50 Last Admin: 01/03/17 22:31 Dose: 325 mg Furosemide (Lasix) 40 mg IVP STAT STA Stop: 01/03/17 20:06 Last Admin: 01/03/17 21:03 Dose: 40 mg MAR Blood Pressure Document 01/03/17 21:03 JOL (Rec: 01/03/17 21:03 [id number] Blood Pressure Blood Pressure (100/60-150/90) 116/61 IVP Administration Document 01/03/17 21:03 JOL (Rec: 01/03/17 21:03 [id number] Charges for Administration # of IVP Administrations 1 Magnesium Sulfate 2 gm/ Sodium (Chloride) 104 mls @ 102 mls/hr IVPB ONCE ONE Stop: 01/03/17 19:51 Last Admin: 01/03/17 19:34 Dose: 102 mls/hr eMAR Start Stop Document 01/03/17 19:34 JOL (Rec: 01/03/17 19:34 [facility]-[id number]) Intravenous Solution Start Date 01/03/17 Start Time 19:34 End Date 01/03/17 End time 20:36 Total Infusion Time 62 Methylprednisolone (Solu-Medrol) 125 mg IVP STAT STA Stop: 01/03/17 18:50 Last Admin: 01/03/17 19:28 Dose: 125 mg IVP Administration Document 01/03/17 19:28 CEZAR (Rec: 01/03/17 19:28 [facility]-[id number]) Charges for Administration # of IVP Administrations 1 - Scribe Statement The provider has reviewed the documentation as recorded by the Mika Thomas Provider Scribe Attestation: All medical record entries made by the Aleksandraibmoris were at my direction and personally dictated by me. I have reviewed the chart and agree that the record accurately reflects my personal performance of the history, physical exam, medical decision making, and the department course for this patient. I have also personally directed, reviewed, and agree with the discharge instructions and disposition. Disposition/Present on Arrival - Present on Arrival Any Indicators Present on Arrival: No History of DVT/PE: No History of Uncontrolled Diabetes: No Urinary Catheter: No History of Decub. Ulcer: No History Surgical Site Infection Following: None - Disposition Have Diagnosis and Disposition been Completed?: Yes Diagnosis: Chronic obstructive lung disease, CHF (congestive heart failure) Disposition: HOSPITALIZED Disposition Time: 21:56 Patient Plan: Admission Patient Problems: Current Active Problems Problem Status Onset Chronic obstructive lung disease Acute CHF (congestive heart failure) Acute Condition: GUARDED
[2017-01-03] MEDS: Albuterol-Ipratrop 3 mg / 0.5 (3 ml) UD IH SCH ×3 (19:10→19:34)
[2017-01-03 19:35] LABS: BASO # 0.01 K/mm3 (0.0-2.0); BASO % 0.2 % (0.0-3.0); EOS # 0.2 (0.0-0.7); EOS % 4.1 % (1.5-5.0); GRAN # 3.42 (1.4-6.5); GRAN % 58.8 % (50.0-68.0); HEMATOCRIT 38.9 % (42.0-52.0); LYMPH # 1.4 (1.2-3.4); LYMPH % 24.2 % (22.0-35.0); MEAN CELL VOLUME 87.8 fl (80.0-105.0); MEAN CORPUSCULAR HEMOGLOBIN 30.2 pg (25.0-35.0); MEAN CORPUSCULAR HGB CONC 34.4 g/dl (31.0-37.0); MEAN PLATELET VOLUME 9.5 fl (7.0-11.0); MONO # 0.7 (0.1-0.6); MONO % 12.7 % (1.0-6.0); RED CELL DISTRIBUTION WIDTH 13.2 % (11.5-14.5); WHITE BLOOD COUNT 5.8 10^3/ul (4.5-11.0)
[2017-01-03 19:37] LABS: VENOUS BLOOD GAS BASE EXCESS 6.8 mmol/L (0.0-2.0); VENOUS BLOOD PH 7.27 (7.32-7.43)
[2017-01-03 19:45] LABS: BLOOD UREA NITROGEN 10 mg/dL (7-21); CALCIUM 9.1 mg/dL (8.4-10.5); CARBON DIOXIDE 35 mmol/L (21-33); CHLORIDE 89 mmol/L (98-107); GFR AFRICAN-AMERICAN > 60; GLUCOSE,RANDOM 160 mg/dL (70-110); SODIUM 128 mmol/L (132-148)
[2017-01-03 20:01] LABS: TROPONIN I 0.16 ng/mL
[2017-01-03 20:38] LABS: ARTERIAL BLOOD GAS HCO3 33.2 mmol/L (21-28); ARTERIAL BLOOD GAS O2 CAPACITY 18.7 mL/dl (16-24); ARTERIAL BLOOD GAS O2 CONTENT 18.6 ML/dl (15-23); ARTERIAL BLOOD GAS PH 7.33 (7.35-7.45); ARTERIAL BLOOD HGB O2 SAT 96.6 % (95.0-98.0); CARBOXYHEMOGLOBIN 1.9 % (0.5-1.5); HHB 0.4 % (0-5)
[2017-01-03] MEDS ORDERED: Albuterol-Ipratrop 3 mg / 0.5 (3 ml) UD IH PRN (22:28)
--- NOTE | 2017-01-03 22:34 | CP.PCM.CON ---
History of Present Illness - History of Present Illness History of Present Illness: ICU Consult Note 86 M with a PMHx of Alzheimer's, HTN, and COPD presented to [facility] from [facility] with complaints of SOB. Pt had an 02 sat in the 80s at which time albuterol neb was administered, however with minimal relief at that time patient was transported to [facility]. Pt had an episode of vomitting while in the ED, and an active non productive cough. Pt was placed on BIPAP and given lasix iv with 400 cc of urine output. Pt was seen and examined at bedside. He is a poor historian, however admitted to sob and a cough. Pt denied fever, chills, chest pains, abdominal pains, n/v/d/c or urinary symptoms. PMHx: Alzheimer's, HTN, and COPD PSHx: Eye surgery Family Hx: Noncontributory SHx: ?former smoker, No etoh/illicits, currently at care home Allergies: NKDA Meds: MAR Reviewed PMD: Dr. Grimm Review of Systems - Review of Systems Review of Systems: As per HPI otherwise Negative Past Patient History - Past Social History Smoking Status: Unknown If Ever Smoked - CARDIAC Hx Cardiac Disorders: Yes Hx Hypertension: Yes - PULMONARY Hx Respiratory Disorders: Yes Hx Chronic Obstructive Pulmonary Disease (COPD): Yes - NEUROLOGICAL Hx Neurological Disorder: Yes Hx Alzheimer's Disease: Yes - HEENT Hx HEENT Problems: No - RENAL Hx Chronic Kidney Disease: No - ENDOCRINE/METABOLIC Hx Endocrine Disorders: No - HEMATOLOGICAL/ONCOLOGICAL Hx Blood Disorders: No - INTEGUMENTARY Hx Dermatological Problems: No - MUSCULOSKELETAL/RHEUMATOLOGICAL Hx Musculoskeletal Disorders: No Hx Falls: No - GASTROINTESTINAL Hx Gastrointestinal Disorders: No - GENITOURINARY/GYNECOLOGICAL Hx Genitourinary Disorders: No - PSYCHIATRIC Hx Psychophysiologic Disorder: No Hx Substance Use: No - SURGICAL HISTORY Hx Surgeries: Yes (eye surgery) Meds Allergies/Adverse Reactions: Allergies Allergy/AdvReac Type Severity Reaction Status Date / Time No Known Allergies Allergy Verified 01/03/17 18:47 Physical Exam - Constitutional Appears: No Acute Distress - Head Exam Head Exam: ATRAUMATIC, NORMAL INSPECTION, NORMOCEPHALIC - Eye Exam Eye Exam: EOMI, Normal appearance, PERRL Pupil Exam: NORMAL ACCOMODATION, PERRL - ENT Exam ENT Exam: Mucous Membranes Moist, Normal Exam - Respiratory Exam Respiratory Exam: Wheezes Additional comments: BIPAP in place - Cardiovascular Exam Cardiovascular Exam: REGULAR RHYTHM, +S1, +S2 - GI/Abdominal Exam GI & Abdominal Exam: Normal Bowel Sounds, Soft. absent: Tenderness - Extremities Exam Extremities exam: Positive for: pedal edema (b/l) - Neurological Exam Neurological exam: Alert, CN II-XII Intact, Oriented x3, Reflexes Normal - Psychiatric Exam Psychiatric exam: Normal Affect, Normal Mood - Skin Skin Exam: Dry, Intact, Normal Color, Warm Results - Vital Signs Recent Vital Signs: Last Vital Signs Temp 98.2 F 01/03/17 19:01 Pulse 91 H 01/03/17 22:20 Resp 20 01/03/17 22:20 BP 109/63 01/03/17 22:20 Pulse Ox 100 01/03/17 22:20 - Labs Result Diagrams: 01/03/17 19:20 01/03/17 19:20 Labs: Laboratory Results - last 24 hr 01/03/17 01/03/17 01/03/17 19:20 19:20 19:20 WBC 5.8 D RBC 4.43 Hgb 13.4 L D Hct 38.9 L MCV 87.8 MCH 30.2 MCHC 34.4 RDW 13.2 Plt Count 302 MPV 9.5 Gran % 58.8 Lymph % (Auto) 24.2 [place] % (Auto) 12.7 H Eos % (Auto) 4.1 Baso % (Auto) 0.2 Gran # 3.42 Lymph # 1.4 [place] # 0.7 H Eos # 0.2 Baso # 0.01 pCO2 pO2 26 L HCO3 ABG pH ABG Total CO2 ABG O2 Saturation ABG O2 Content ABG Base Excess ABG Hemoglobin ABG Carboxyhemoglobin POC ABG HHb (Measured) ABG Methemoglobin ABG O2 Capacity VBG pH 7.27 L VBG pCO2 80.0 H* VBG HCO3 36.7 H VBG Total CO2 39.2 H VBG O2 Sat (Calc) 52.1 VBG Base Excess 6.8 H VBG Potassium 4.5 Hgb O2 Saturation Sodium 128.0 L 128 L Chloride 90.0 L 89 L Glucose 165 H Lactate 1.4 FiO2 21.0 Potassium 4.0 Carbon Dioxide 35 H Anion Gap 8 L BUN 10 Creatinine 0.7 L Est GFR ( Amer) > 60 Est GFR (Non-Af Amer) > 60 Random Glucose 160 H Calcium 9.1 Lactate Dehydrogenase 470 Total Creatine Kinase 93 Troponin I 0.16 H* D NT-Pro-B Natriuret Pep 2490 H Venous Blood Potassium 4.5 01/03/17 20:30 WBC RBC Hgb Hct MCV MCH MCHC RDW Plt Count MPV Gran % Lymph % (Auto) [place] % (Auto) Eos % (Auto) Baso % (Auto) Gran # Lymph # [place] # Eos # Baso # pCO2 63 H pO2 136.0 H HCO3 33.2 H ABG pH 7.33 L ABG Total CO2 35.1 H ABG O2 Saturation 99.6 H ABG O2 Content 18.6 ABG Base Excess 5.3 H ABG Hemoglobin 13.5 ABG Carboxyhemoglobin 1.9 H POC ABG HHb (Measured) 0.4 ABG Methemoglobin 1.0 ABG O2 Capacity 18.7 VBG pH VBG pCO2 VBG HCO3 VBG Total CO2 VBG O2 Sat (Calc) VBG Base Excess VBG Potassium Hgb O2 Saturation 96.6 Sodium Chloride Glucose Lactate FiO2 40.0 Potassium Carbon Dioxide Anion Gap BUN Creatinine Est GFR ( Amer) Est GFR (Non-Af Amer) Random Glucose Calcium Lactate Dehydrogenase Total Creatine Kinase Troponin I NT-Pro-B Natriuret Pep Venous Blood Potassium Assessment & Plan - Assessment and Plan (Free Text) Assessment: 86 M with PMHx of HTN, COPD and alzheimers admitted for COPD exacerbation currently placed on BIPAP with improvement demonstrated on ABG. Recommend to continue BIPAP at this time and continue lasix IV, nebulizers, and steroids. Pt' s vitals are stable. Pt not requiring ICU level of care at this point. Please reconsult if pt deteriorates during course of stay. Thank you for allowing us in participating in the care of this pt.
[2017-01-04 00:49] VITALS: BMI 26.6
--- NOTE | 2017-01-04 10:20 | RAD ---
HISTORY: sob COMPARISON: 10/19/2016 FINDINGS: LUNGS: No active pulmonary disease. PLEURA: No significant pleural effusion identified, no pneumothorax apparent. CARDIOVASCULAR: Normal. OSSEOUS STRUCTURES: No significant abnormalities. VISUALIZED UPPER ABDOMEN: Normal. OTHER FINDINGS: Mild aortic tortuosity IMPRESSION: No active disease.
[2017-01-04] MEDS: MethylPREDNISolone 40 mg Vial IVP SCH ×2 (10:52→21:50)
[2017-01-04] MEDS: Pantoprazole 40 mg EC Tab PO SCH (10:53)
--- NOTE | 2017-01-04 15:34 | CARD ---
APPROVED REPORT EKG Measurement Heart [id number] <Conclusion> Normal sinus rhythm Right bundle branch block Left anterior fascicular block Bifascicular block Septal infarct, age undetermined
--- NOTE | 2017-01-04 19:49 | CON ---
DATE: 01/04/2017 HISTORY OF PRESENT ILLNESS: The patient is an 86-year-old male from a senior living, who presents with dyspnea. The patient's past medical history is notable for severe COPD in the past. The patient is very confused and is not able to give a good history. According to his previous chart, he suffers from COPD as well as hypertension in the past. His last admission included an echocardiogram, which revealed an ejection fraction of 70% and mild pulmonary hypertension. Social history and review of systems are unavailable. The patient denies chest pain or shortness of breath. PHYSICAL EXAMINATION VITAL SIGNS: Blood pressure 113/50, heart rate in the 80s. NECK: Negative JVD. LUNGS: Without rales. HEART: S1, S2. EXTREMITIES: Without edema. DIAGNOSTIC DATA: EKG shows no acute changes. LABORATORY Troponin is 0.16 with the ProBNP is 2490, BUN and creatinine unremarkable. Hemoglobin is 13.4. IMPRESSION 1. [id number] myocardial infarction. 2. Coronary artery disease. 3. Chronic obstructive pulmonary disease. 4. History of bronchospasm. 5. Marked dementia and confusion. PLAN: Given these findings, we will treat the patient's elevated troponins with medical therapy. No plans for cardiac intervention. We will add a baby aspirin daily as well as statin therapy. We cannot use beta blockers, given his history of bronchospasm. Gennaro Jang MD
[2017-01-04] MEDS: Albuterol-Ipratrop 3 mg / 0.5 (3 ml) UD IH PRN (21:25)
--- NOTE | 2017-01-05 00:44 | CP.PCM.PN ---
Subjective - Date & Time of Evaluation Date of Evaluation: 01/05/17 Time of Evaluation: 00:38 - Subjective Subjective: Patient was seen because he was agitated. As I was coming to patient's bed, I heard announcement for [facility] [place]. Patient is agitated and confused. Denies chest pain, sob. Medical record was reviewed. This 86 year old white male was admitted with dyspnea/borderline anemia, hyponatremia,NSTEMI. Has PMH of COPD,CAD, HTN, bronchospasm,chronic degenerative disc disease,mild dementia with agitation sometimes,vitiligo, Hx of lipoma. Objective - Vital Signs/Intake and Output Vital Signs (last 24 hours): Temp Pulse Resp BP Pulse Ox 97.8 F 102 H 18 145/75 96 01/04/17 18:00 01/04/17 21:20 01/04/17 18:00 01/04/17 18:00 01/04/17 18:00 Intake and Output: 01/04/17 01/05/17 18:59 06:59 Intake Total 300 Output Total 600 Balance -300 - Medications Medications: Current Medications Albuterol/Ipratropium (Duoneb 3 Mg/0.5 Mg (3 Ml) Ud) 3 ml IH Q2H PRN PRN Reason: Shortness of Breath Last Admin: 01/04/17 21:25 Dose: 3 ml Aspirin (Ecotrin) 81 mg PO DAILY [facility] Last Admin: 01/04/17 10:53 Dose: 81 mg Atorvastatin Calcium (Lipitor) 20 mg PO DIN [facility] Last Admin: 01/04/17 18:36 Dose: 20 mg Benzonatate (Tessalon Perles) 100 mg PO TID LIUDMILA Donepezil HCl (Aricept) 10 mg PO HS [facility] Last Admin: 01/04/17 21:48 Dose: 10 mg Doxycycline Hyclate (Doryx) 100 mg PO Q12 LIUDMILA PRN Reason: Protocol Last Admin: 01/04/17 21:49 Dose: 100 mg Lorazepam (Ativan) 0.25 mg PO TID PRN; Protocol PRN Reason: Anxiety Last Admin: 01/04/17 21:48 Dose: 0.25 mg Methylprednisolone (Solu-Medrol) 30 mg IVP Q12 LIUDMILA Last Admin: 01/04/17 21:50 Dose: 30 mg Metoclopramide HCl (Reglan) 10 mg PO 0600,1130,1630,2200 [facility] Last Admin: 01/04/17 21:49 Dose: 10 mg Ondansetron HCl (Zofran Inj) 4 mg IVP Q4H PRN PRN Reason: Nausea/Vomiting Pantoprazole Sodium (Protonix Ec Tab) 40 mg PO 0600 [facility] Last Admin: 01/04/17 10:53 Dose: 40 mg - Labs Labs: Micro Results 01/03/17 19:00 Blood-Venous Blood Culture - Preliminary NO GROWTH AFTER 24 HOURS 01/03/17 19:20 Blood-Venous Blood Culture - Preliminary NO GROWTH AFTER 24 HOURS Most Recent Lab Values WBC 5.8 10^3/ul (4.5-11.0) D 01/03/17 19:20 RBC 4.43 10^6/uL (3.5-6.1) 01/03/17 19:20 Hgb 13.4 g/dL (14.0-18.0) L D 01/03/17 19:20 Hct 38.9 % (42.0-52.0) L 01/03/17 19:20 MCV 87.8 fl (80.0-105.0) 01/03/17 19:20 MCH 30.2 pg (25.0-35.0) 01/03/17 19:20 MCHC 34.4 g/dl (31.0-37.0) 01/03/17 19:20 RDW 13.2 % (11.5-14.5) 01/03/17 19:20 Plt Count 302 10^3/uL (120.0-450.0) 01/03/17 19:20 MPV 9.5 fl (7.0-11.0) 01/03/17 19:20 Gran % 58.8 % (50.0-68.0) 01/03/17 19:20 Lymph % (Auto) 24.2 % (22.0-35.0) 01/03/17 19:20 [place] % (Auto) 12.7 % (1.0-6.0) H 01/03/17 19:20 Eos % (Auto) 4.1 % (1.5-5.0) 01/03/17 19:20 Baso % (Auto) 0.2 % (0.0-3.0) 01/03/17 19:20 Gran # 3.42 (1.4-6.5) 01/03/17 19:20 Lymph # 1.4 (1.2-3.4) 01/03/17 19:20 [place] # 0.7 (0.1-0.6) H 01/03/17 19:20 Eos # 0.2 (0.0-0.7) 01/03/17 19:20 Baso # 0.01 K/mm3 (0.0-2.0) 01/03/17 19:20 pCO2 63 mm/Hg (35-45) H 01/03/17 20:30 pO2 136.0 mm/Hg (80-100) H 01/03/17 20:30 HCO3 33.2 mmol/L (21-28) H 01/03/17 20:30 ABG pH 7.33 (7.35-7.45) L 01/03/17 20:30 ABG Total CO2 35.1 mmol.L (22-28) H 01/03/17 20:30 ABG O2 Saturation 99.6 % (95-98) H 01/03/17 20:30 ABG O2 Content 18.6 ML/dl (15-23) 01/03/17 20:30 ABG Base Excess 5.3 mmol/L (-2.0-3.0) H 01/03/17 20:30 ABG Hemoglobin 13.5 g/dL (11.7-17.4) 01/03/17 20:30 ABG Carboxyhemoglobin 1.9 % (0.5-1.5) H 01/03/17 20:30 POC ABG HHb (Measured) 0.4 % (0-5) 01/03/17 20:30 ABG Methemoglobin 1.0 % (0.0-3.0) 01/03/17 20:30 ABG O2 Capacity 18.7 mL/dl (16-24) 01/03/17 20:30 VBG pH 7.27 (7.32-7.43) L 01/03/17 19:20 VBG pCO2 80.0 (40-60) H* 01/03/17 19:20 VBG HCO3 36.7 mmol/l (21-28) H 01/03/17 19:20 VBG Total CO2 39.2 mmol.L (22-28) H 01/03/17 19:20 VBG O2 Sat (Calc) 52.1 % (40-65) 01/03/17 19:20 VBG Base Excess 6.8 mmol/L (0.0-2.0) H 01/03/17 19:20 VBG Potassium 4.5 mmol/L (3.6-5.2) 01/03/17 19:20 Hgb O2 Saturation 96.6 % (95.0-98.0) 01/03/17 20:30 Sodium 128.0 mmol/L (132-148) L 01/03/17 19:20 Chloride 90.0 mmol/L (98-107) L 01/03/17 19:20 Glucose 165 mg/dl (75-110) H 01/03/17 19:20 Lactate 1.4 mmol/L (0.7-2.1) 01/03/17 19:20 FiO2 40.0 % 01/03/17 20:30 Sodium 128 mmol/L (132-148) L 01/03/17 19:20 Potassium 4.0 mmol/L (3.6-5.0) 01/03/17 19:20 Chloride 89 mmol/L (98-107) L 01/03/17 19:20 Carbon Dioxide 35 mmol/L (21-33) H 01/03/17 19:20 Anion Gap 8 (10-20) L 01/03/17 19:20 BUN 10 mg/dL (7-21) 01/03/17 19:20 Creatinine 0.7 mg/dL (0.8-1.5) L 01/03/17 19:20 Est GFR ( Amer) > 60 01/03/17 19:20 Est GFR (Non-Af Amer) > 60 01/03/17 19:20 Random Glucose 160 mg/dL (70-110) H 01/03/17 19:20 Calcium 9.1 mg/dL (8.4-10.5) 01/03/17 19:20 Lactate Dehydrogenase 470 U/L (333-699) 01/03/17 19:20 Total Creatine Kinase 93 U/L (35-230) 01/03/17 19:20 Troponin I 0.16 ng/mL H* D 01/03/17 19:20 NT-Pro-B Natriuret Pep 2490 pg/mL (0-450) H 01/03/17 19:20 Venous Blood Potassium 4.5 mmol/L (3.6-5.2) 01/03/17 19:20 - Constitutional Appears: Other (Agitated.) - Head Exam Head Exam: ATRAUMATIC, NORMAL INSPECTION, NORMOCEPHALIC - Eye Exam Eye Exam: Normal appearance - ENT Exam ENT Exam: Normal External Ear Exam - Neck Exam Neck Exam: Normal Inspection - Respiratory Exam Respiratory Exam: Clear to Ausculation Bilateral, NORMAL BREATHING PATTERN. absent: Accessory Muscle Use, Rales, Rhonchi, Wheezes, Respiratory Distress, Stridor - Cardiovascular Exam Cardiovascular Exam: Tachycardia - GI/Abdominal Exam GI & Abdominal Exam: absent: Distended - Rectal Exam Rectal Exam: Deferred - Exam Additional comments: Deferred. - Extremities Exam Extremities Exam: Normal Inspection - Back Exam Back Exam: NORMAL INSPECTION - Neurological Exam Neurological Exam: Altered, Awake - Psychiatric Exam Psychiatric exam: Agitated - Skin Skin Exam: Normal Color Assessment and Plan - Assessment and Plan (Free Text) Assessment: Altered mental status. Agitation. Dementia. Hypercarbia. COPD. NSTEMI. HTN. CAD. 86 year old white male was admitted with dyspnea/borderline anemia,hyponatremia ,NSTEMI. Has PMH of COPD,CAD, HTN, bronchospasm,chronic degenerative disc disease,mild dementia with agitation sometimes,vitiligo, Hx of lipoma. Plan: Ativan 0.5 mg IV was given.----> Had to give 1 mg IV more because he removed BiPAP mask and became agitated again. TIFFANIE VEST and bilateral wrist restraints applied. ABG------> Patient refused. Placed on BiPAP. Will get ABG if continues to be agitated and non compliant to r/o hypercarbia. Will call PMD prn.
--- NOTE | 2017-01-05 05:12 | CON ---
PULMONARY CONSULTATION DATE: 01/03/2017 REFERRING PHYSICIAN: Dr. Gan. REASON FOR CONSULTATION: Respiratory failure, requiring noninvasive ventilation, chronic lung disease and heart failure. HISTORY OF PRESENT ILLNESS: This is an 86-year-old male with past medical history significant for chronic lung disease, hypertension, has Alzheimer's type dementia, custodial resident brought into Emergency Room with hypoxemia, respiratory failure, requiring noninvasive ventilation, found to be on heart failure, also has some cough, history of GERD. No hemoptysis, no hematemesis, no hematuria, no diarrhea reported. In ER Lasix was given with some increased urine output and feel a little better. Presently lying in the bed. He does have cough and shortness of breath. Clear sputum production. PAST MEDICAL HISTORY: Chronic obstructive lung disease, hypertension, GERD, obesity, and Alzheimer's type dementia. ALLERGIES: NONE KNOWN. SOCIAL HISTORY: Former smoker, custodial resident. No history of alcohol abuse. FAMILY HISTORY: No significant cardiopulmonary disease reported. MEDICATIONS: He is on Aricept 10 mg at bedtime, Ativan 0.25 mg three times a day p.r.n., DuoNeb q. 2 hour p.r.n., Ecotrin 81 mg daily, Lipitor 20 mg daily, Protonix 40 mg daily, Solu-Medrol 30 mg IV q. 12 hour, and Zofran p.r.n. basis. REVIEW OF SYSTEMS: No headache. Has some rhinitis, postnasal drip, cough and shortness of breath. Admits to have GERD. No abdominal pain. Loud snoring, daytime sleepy and tired. No dysuria or leg pain. He does have leg swelling. PHYSICAL EXAMINATION: GENERAL: Lying in the bed, mild distress secondary to cough and shortness of breath. VITAL SIGNS: Temperature is 98, heart rate is 81, respiratory rate is 21, blood pressure is 113/50, and pulse oximetry is 98% on 40% oxygen on BiPAP. HEENT: Moist mucous membrane. Crowded airway. Mallampati score is IV. NECK: Supple. No JVD. LUNGS: Has few crackles at bases, scattered rhonchi. HEART: S1 and S2. ABDOMEN: Soft and nontender. No organomegaly. EXTREMITIES: Has some edema. NEUROLOGIC: Awake, alert, and follow simple commands. LABORATORY DATA: Shows hemoglobin 13.4, hematocrit 38.9, WBC 5.8, and platelet is 302. ABG shows pH of 7.33, pCO2 is 63, and O2 of 136 this is on 40% oxygen on BiPAP. Sodium 128, potassium 4.0, chloride 89, bicarbonate 35, BUN 10, creatinine 0.7 and glucose 160. CPK is 93. LDH is 470. Troponin 0.16, and proBNP 2490. Chest x-ray shows no active pulmonary infiltrate or effusion. IMPRESSION AND PLAN: Respiratory failure, probably have a sleep apnea syndrome, chronic lung disease, obesity, suspected hypoventilation syndrome, Alzheimer type dementia, also have history of hypertension. I agree with the present management. Continue steroid inhaler, bronchodilator, and diuretics. We will get echocardiogram to assess left ventricular and right ventricular function. We recommend sleep study as outpatient. We will continue bilevel positive airway pressure while sleeping. Gastroesophageal reflux disease precaution, and followup labs in the morning. Thank you and we will follow with you. Thee Garrett MD
--- NOTE | 2017-01-05 05:36 | HP ---
CHIEF COMPLAINT: Shortness of breath. HISTORY OF PRESENT ILLNESS: Mr. Feliz Mckoy is an 86-year-old male, resident of [facility]. Past medical history of COPD, has exacerbation of COPD, was having really shortness of breath. Pulse oxygenation was in 80s and in [place], they gave him DuoNeb, but still pulse oximetry cannot go up then the patient was brought to [facility] Emergency Room by EMS. The patient is a poor historian. The patient's oxygen saturation level was in 80s. The patient vomited once in the Emergency Room upon arrival. cough, but denies any fever or chills, abdominal pain. No diarrhea. No hematuria or hematochezia. No chest pain or palpitation. PAST MEDICAL HISTORY: Hypertension, COPD and dementia. FAMILY HISTORY: Father and mother noncontributory. HABITS: No smoking. No drug or ethanol. ALLERGIES: THE PATIENT IS NOT ALLERGIC WITH ANY MEDICATIONS. HOME MEDICATIONS: Aricept, Ativan, Z-Yassine, Singulair, Zyrtec and Breo. REVIEW OF SYSTEMS: The patient is seen and examined on the bedside in the room, still coughing with shortness of breath. No nausea, vomiting or diarrhea. No hematuria or hematochezia. No swelling of the legs. No chest pain or palpitation. No headache. No dizziness. PHYSICAL EXAMINATION: VITAL SIGNS: Temperature 98.2, pulse 95, respiratory rate 18, blood pressure 103/65 and pulse oximetry of 96. HEENT: Head is normocephalic and atraumatic. Eyes: PERRLA. Extraocular muscles are intact. Conjunctivae clear. Nose is patent. Mucous membrane moist. NECK: Supple. No carotid bruit. No JVD or thyromegaly. CHEST: Bilaterally symmetrical. HEART: S1 and S2 positive. LUNGS: Clear to auscultation. ABDOMEN: Soft. Bowel sounds present. No organomegaly. EXTREMITIES: No edema. No cyanosis. NEUROLOGIC: The patient is awake and alert. Moving all 4 extremities. No focal deficit. Cranial nerves II through XII are grossly intact. LABORATORY DATA: White blood cells is 5.8, hemoglobin 13.4, hematocrit 38.9 and platelets 302. Sodium 148, potassium 4.0, BUN 10, creatinine 0.7 and glucose 150. ASSESSMENT AND PLAN: Mr. Feliz Mckoy is an 86-year-old male with anemia, hyponatremia, hyperglycemia, has exacerbation of chronic obstructive pulmonary disease, dementia. Seen by Dr. Gennaro Jang, the patient's [employer]orative [employer]mer. Non-ST elevation myocardial infarction, coronary artery disease, chronic obstructive pulmonary disease, history of bronchospasm, marked dementia with confusion. The patient is evaluated with troponins. According to Dr. Gennaro Jang, he will be given medical treatment. No plans for Cardiac intervention. He has baby aspirin and statin. He cannot use beta angelica, given history of bronchospasm. The patient was placed on bilevel positive airway pressure last night with improvement dramatically on ABG. Recommended to continue bilevel positive airway pressure at this time and continue IV Lasix, nebulizer and steroid. Actually, we tried to get Intensive Care Unit evaluation, but Intensive Care Unit District Traffic Chief who saw the patient and according to him, the patient not requiring Intensive Care Unit level of care at this point. Pulmonary consult called. Gastrointestinal and deep venous thrombosis prophylaxis. Repeat labs. We will follow up. Cecelia Gan MD [facility]
[2017-01-05] MEDS: Pantoprazole 40 mg EC Tab PO SCH (07:34)
[2017-01-05 08:49] LABS: ALB/GLOB RATIO 1.5 (1.1-1.8); ALKALINE PHOSPHATASE 92 U/L (38-126); ALT/SGPT 32 U/L (7-56); AST/SGOT 22 U/L (17-59); BILIRUBIN,TOTAL 0.5 mg/dL (0.2-1.3); BLOOD UREA NITROGEN 16 mg/dL (7-21); CALCIUM 9.3 mg/dL (8.4-10.5); CARBON DIOXIDE 37 mmol/L (21-33); CHLORIDE 95 mmol/L (95-110); GFR AFRICAN-AMERICAN > 60; GLUCOSE,RANDOM 99 mg/dL (70-110); SODIUM 136 mmol/L (132-148); TOTAL PROTEIN 6.2 g/dL (5.8-8.3)
[2017-01-05] MEDS: MethylPREDNISolone 40 mg Vial IVP SCH ×2 (10:33→23:26)
--- NOTE | 2017-01-05 21:39 | PN ---
PULMONARY PROGRESS NOTE REFERRING PHYSICIAN: Cecelia Gan MD SUBJECTIVE: He is sitting up in bed. Speech therapy at bedside helping him with meal. He is edentulous. No obvious respiration, but does have a cough. Very sleepy, falls through the meal. No hemoptysis, no hematemesis, no hematuria, no diarrhea reported. Tolerated BiPAP well last night. OBJECTIVE: GENERAL: Sleepy, arousable. VITAL SIGNS: Temp 98, heart rate is 84, respiratory rate is 18, blood pressure 112/67, pulse ox 92% on BiPAP. HEENT: Moist mucous membrane. Crowded airway. Mallampati score is IV. NECK: Supple. No JVD. LUNGS: Has few crackles at bases, scattered rhonchi. HEART: S1 and S2. ABDOMEN: Soft, nontender. No organomegaly. EXTREMITIES: Not much edema. NEUROLOGIC: Sleepy, arousable. MEDICATIONS: He is on Aricept 10 mg at bedtime, Ativan 0.25 mg three times a day p.r.n., doxycycline 100 mg twice a day, DuoNeb q. 2 hour p.r.n., Ecotrin 81 mg daily, Lipitor 20 mg daily, Protonix 40 mg daily, Reglan 10 mg q.i.d., Solu-Medrol 30 mg q. 12 hour, Tessalon Perles 100 mg three times and Zofran p.r.n. basis. LABORATORY DATA: Shows sodium 136, potassium 5.0, chloride 95, bicarbonate 37, BUN 16, creatinine 0.7, glucose 99, calcium 9.3, total bilirubin 0.5, AST 22, ALT 32, alkaline phosphatase 92. Troponin 0.16, proBNP 2490, albumin 3.7. Microbiology, blood culture is negative. IMPRESSION AND PLAN: Respiratory failure, requiring noninvasive ventilation, probably have component of hypoventilation syndrome, obesity, chronic lung disease, Alzheimer-type dementia, there is maybe component from the dysphagia, hypertension. Case discussed with speech therapy. We will try to change diet to dental soft diet. Respiration precaution. I will add Nuvigil in the morning. Continue BiPAP while sleeping. Gastric prophylaxis and DVT prophylaxis. GERD precaution. Thank you and we will follow with you. Thee Garrett MD [facility] # [id number]
--- NOTE | 2017-01-06 01:36 | PN ---
SUBJECTIVE: The patient was seen and examined at the bedside. Sleepy, arousable, but moving all four extremities. Code dockery was done for him. The patient was agitated and confused at that movement, has advanced dementia. No fever, no chills. PHYSICAL EXAMINATION: VITAL SIGNS: Temperature 97.8, pulse is 102, respiration 18, blood pressure 135/75, pulse oximetry 96. HEENT: Head is normocephalic and atraumatic. Eyes: PERRLA. Extraocular muscles are intact. Conjunctivae clear. Nose is patent. Mucous membrane moist. NECK: Supple. No carotid bruit. No JVD or thyromegaly. CHEST: Bilaterally symmetrical. HEART: S1 and S2 positive. LUNGS: Clear to auscultation. ABDOMEN: Soft. Bowel sounds are present. No organomegaly. EXTREMITIES: No edema. No cyanosis. NEUROLOGIC: The patient is sleepy, arousable and moving all four extremities. MEDICATIONS: DuoNeb, Ecotrin, Lipitor, benzoate, Aricept, doxycycline, Ativan, Solu-Medrol, Reglan, Zofran, Protonix. LABORATORY DATA: We do not have any recent labs today, but I reviewed old labs. We have chemistries: Sodium 136, potassium 5.0, BUN 15, creatinine 0.7, glucose 99, troponin is 0.16. ASSESSMENT AND PLAN: The patient is an 86-year-old male with history of chronic obstructive lung disease, hypertension, gastroesophageal reflux disease, obesity, Alzheimer-type dementia, has respiratory failure sleep apnea syndrome, suspect hypoventilation syndrome, getting apparent treatment, got BiPAP, will need echocardiogram. Political Organizer is on the case. Gastrointestinal and deep venous thrombosis prophylaxis. Television Presenter is on the case. Today early in the morning they have code dockery because the patient was confused and agitated. He has history of non-ST elevation myocardial infarction, hyponatremia, coronary artery disease, bronchospasm, degenerative joint disease. The patient has history of lymphoma. Cecelia Gan MD MTDJannette
[2017-01-06] MEDS: Pantoprazole 40 mg EC Tab PO SCH (06:50)
[2017-01-06 07:51] LABS: ALB/GLOB RATIO 1.7 (1.1-1.8); ALKALINE PHOSPHATASE 127 U/L (38-126); ALT/SGPT 42 U/L (7-56); AST/SGOT 26 U/L (17-59); BILIRUBIN,TOTAL 0.6 mg/dL (0.2-1.3); BLOOD UREA NITROGEN 14 mg/dL (7-21); CALCIUM 9.7 mg/dL (8.4-10.5); CARBON DIOXIDE 32 mmol/L (21-33); CHLORIDE 95 mmol/L (95-110); GFR AFRICAN-AMERICAN > 60; GLUCOSE,RANDOM 155 mg/dL (70-110); POTASSIUM 4.3 mmol/L (3.6-5.0); SODIUM 135 mmol/L (132-148); TOTAL PROTEIN 6.9 g/dL (5.8-8.3)
[2017-01-06] MEDS: MethylPREDNISolone 40 mg Vial IVP SCH ×2 (10:58→22:40)
[2017-01-06] MEDS: Armodafinil 250 mg Tab PO SCH (11:16)
[2017-01-06 14:52] LABS: IRON 65 ug/dL (45-180)
--- NOTE | 2017-01-06 16:57 | PN ---
DATE: SUBJECTIVE: The patient is an 86-year-old male. The patient was seen and examined at the bedside. Looking comfortable. Sitting having breakfast, still has waist restraint. No nausea, vomiting or diarrhea. No hematuria or hematochezia. No swelling of the legs. No chest pain or palpitation. PHYSICAL EXAMINATION: VITAL SIGNS: Temperature 98.4, pulse 94, blood pressure 123/74, and respiratory rate 18. HEENT: Head is normocephalic and atraumatic. Eyes: PERRLA. Extraocular muscles are intact. Conjunctivae clear. Nose is patent. Mucous membrane moist. NECK: Supple. No carotid bruit. No JVD or thyromegaly. CHEST: Bilaterally symmetrical. HEART: S1 and S2 positive. LUNGS: Clear to auscultation. ABDOMEN: Soft. Bowel sounds present. No organomegaly. EXTREMITIES: No edema. No cyanosis. NEUROLOGIC: The patient is awake and alert. Moving all 4 extremities. No focal deficit. MEDICATIONS: Aricept, Ativan, doxycycline, Ecotrin, Lipitor, Nuvigil, Protonix, Reglan, Solu-Medrol, Tessalon Perles, and Zofran. LABORATORY DATA: Chemistry; sodium 135, potassium 4.3, BUN 14, creatinine 0.7, glucose 155, and alkaline phosphatase 127. ASSESSMENT AND PLAN: Mr. Feliz Mckoy is an 86-year-old male with multiple medical problems, have respiratory failure requiring noninvasive ventilation, probably have component of hypoventilation syndrome, obesity, chronic obstructive pulmonary disease, dementia, anxiety, dysphagia, hypertension, and advanced dementia. The patient was restless and was put on waist restraint. Today, he looks like sober. We will discontinue chest restraint. Discussion done with the patient's nurse to put the patient on chair on the bedside, give physical therapy. Repeat labs. We will follow up. Cecelia Gan MD
--- NOTE | 2017-01-06 22:49 | CP.PCM.PN ---
Subjective - Date & Time of Evaluation Date of Evaluation: 01/06/17 Time of Evaluation: 22:48 - Subjective Subjective: Patient has been trying to get out of bed, is agitated. Offers no complaints. Medical record was reviewed. 86 year old white male was admitted with sob/NSTEMI,borderline anemia, hyponatremia. PMH of HTN,COPD,CAD, bronchospasm,chronic degenerative disc disease,mild dementia with agitation sometimes,vitiligo, Hx of lipoma. Objective - Vital Signs/Intake and Output Vital Signs (last 24 hours): Temp Pulse Resp BP Pulse Ox 98 F 91 H 20 154/86 H 97 01/06/17 18:00 01/06/17 18:00 01/06/17 18:00 01/06/17 18:00 01/06/17 18:00 - Medications Medications: Current Medications Albuterol/Ipratropium (Duoneb 3 Mg/0.5 Mg (3 Ml) Ud) 3 ml IH Q2H PRN PRN Reason: Shortness of Breath Last Admin: 01/04/17 21:25 Dose: 3 ml Armodafinil (Nuvigil 250 Mg Tab) 250 mg PO DAILY [facility] Last Admin: 01/06/17 11:16 Dose: 250 mg Aspirin (Ecotrin) 81 mg PO DAILY [facility] Last Admin: 01/06/17 10:58 Dose: 81 mg Atorvastatin Calcium (Lipitor) 20 mg PO DIN [facility] Last Admin: 01/06/17 18:46 Dose: 20 mg Benzonatate (Tessalon Perles) 100 mg PO TID [facility] Last Admin: 01/06/17 18:46 Dose: 100 mg Donepezil HCl (Aricept) 10 mg PO HS [facility] Last Admin: 01/06/17 22:23 Dose: 10 mg Doxycycline Hyclate (Doryx) 100 mg PO Q12 [facility] PRN Reason: Protocol Last Admin: 01/06/17 22:24 Dose: 100 mg Methylprednisolone (Solu-Medrol) 20 mg IVP Q12 [facility] Last Admin: 01/06/17 22:40 Dose: 20 mg Metoclopramide HCl (Reglan) 10 mg PO 0600,1130,1630,2200 [facility] Last Admin: 01/06/17 22:24 Dose: 10 mg Ondansetron HCl (Zofran Inj) 4 mg IVP Q4H PRN PRN Reason: Nausea/Vomiting Pantoprazole Sodium (Protonix Ec Tab) 40 mg PO 0600 [facility] Last Admin: 01/06/17 06:50 Dose: 40 mg - Labs Labs: 01/06/17 07:34 Laboratory Last Values WBC 5.8 10^3/ul (4.5-11.0) D 01/03/17 19:20 RBC 4.43 10^6/uL (3.5-6.1) 01/03/17 19:20 Hgb 13.4 g/dL (14.0-18.0) L D 01/03/17 19:20 Hct 38.9 % (42.0-52.0) L 01/03/17 19:20 MCV 87.8 fl (80.0-105.0) 01/03/17 19:20 MCH 30.2 pg (25.0-35.0) 01/03/17 19:20 MCHC 34.4 g/dl (31.0-37.0) 01/03/17 19:20 RDW 13.2 % (11.5-14.5) 01/03/17 19:20 Plt Count 302 10^3/uL (120.0-450.0) 01/03/17 19:20 MPV 9.5 fl (7.0-11.0) 01/03/17 19:20 Gran % 58.8 % (50.0-68.0) 01/03/17 19:20 Lymph % (Auto) 24.2 % (22.0-35.0) 01/03/17 19:20 Warren % (Auto) 12.7 % (1.0-6.0) H 01/03/17 19:20 Eos % (Auto) 4.1 % (1.5-5.0) 01/03/17 19:20 Baso % (Auto) 0.2 % (0.0-3.0) 01/03/17 19:20 Gran # 3.42 (1.4-6.5) 01/03/17 19:20 Lymph # 1.4 (1.2-3.4) 01/03/17 19:20 Warren # 0.7 (0.1-0.6) H 01/03/17 19:20 Eos # 0.2 (0.0-0.7) 01/03/17 19:20 Baso # 0.01 K/mm3 (0.0-2.0) 01/03/17 19:20 pCO2 63 mm/Hg (35-45) H 01/03/17 20:30 pO2 136.0 mm/Hg (80-100) H 01/03/17 20:30 HCO3 33.2 mmol/L (21-28) H 01/03/17 20:30 ABG pH 7.33 (7.35-7.45) L 01/03/17 20:30 ABG Total CO2 35.1 mmol.L (22-28) H 01/03/17 20:30 ABG O2 Saturation 99.6 % (95-98) H 01/03/17 20:30 ABG O2 Content 18.6 ML/dl (15-23) 01/03/17 20:30 ABG Base Excess 5.3 mmol/L (-2.0-3.0) H 01/03/17 20:30 ABG Hemoglobin 13.5 g/dL (11.7-17.4) 01/03/17 20:30 ABG Carboxyhemoglobin 1.9 % (0.5-1.5) H 01/03/17 20:30 POC ABG HHb (Measured) 0.4 % (0-5) 01/03/17 20:30 ABG Methemoglobin 1.0 % (0.0-3.0) 01/03/17 20:30 ABG O2 Capacity 18.7 mL/dl (16-24) 01/03/17 20:30 VBG pH 7.27 (7.32-7.43) L 01/03/17 19:20 VBG pCO2 80.0 (40-60) H* 01/03/17 19:20 VBG HCO3 36.7 mmol/l (21-28) H 01/03/17 19:20 VBG Total CO2 39.2 mmol.L (22-28) H 01/03/17 19:20 VBG O2 Sat (Calc) 52.1 % (40-65) 01/03/17 19:20 VBG Base Excess 6.8 mmol/L (0.0-2.0) H 01/03/17 19:20 VBG Potassium 4.5 mmol/L (3.6-5.2) 01/03/17 19:20 Hgb O2 Saturation 96.6 % (95.0-98.0) 01/03/17 20:30 Sodium 128.0 mmol/L (132-148) L 01/03/17 19:20 Chloride 90.0 mmol/L (98-107) L 01/03/17 19:20 Glucose 165 mg/dl (75-110) H 01/03/17 19:20 Lactate 1.4 mmol/L (0.7-2.1) 01/03/17 19:20 FiO2 40.0 % 01/03/17 20:30 Sodium 135 mmol/L (132-148) 01/06/17 07:34 Potassium 4.3 mmol/L (3.6-5.0) 01/06/17 07:34 Chloride 95 mmol/L (95-110) 01/06/17 07:34 Carbon Dioxide 32 mmol/L (21-33) 01/06/17 07:34 Anion Gap 12 (10-20) 01/06/17 07:34 BUN 14 mg/dL (7-21) 01/06/17 07:34 Creatinine 0.7 mg/dL (0.8-1.5) L 01/06/17 07:34 Est GFR ( Amer) > 60 01/06/17 07:34 Est GFR (Non-Af Amer) > 60 01/06/17 07:34 Random Glucose 155 mg/dL (70-110) H 01/06/17 07:34 Calcium 9.7 mg/dL (8.4-10.5) 01/06/17 07:34 Iron 65 ug/dL (45-180) 01/06/17 07:30 TIBC 248 ug/dL (261-462) L 01/06/17 07:30 % Saturation 26 % (20-55) 01/06/17 07:30 Total Bilirubin 0.6 mg/dL (0.2-1.3) 01/06/17 07:34 AST 26 U/L (17-59) 01/06/17 07:34 ALT 42 U/L (7-56) 01/06/17 07:34 Alkaline Phosphatase 127 U/L (38-126) H D 01/06/17 07:34 Lactate Dehydrogenase 470 U/L (333-699) 01/03/17 19:20 Total Creatine Kinase 93 U/L (35-230) 01/03/17 19:20 Troponin I 0.16 ng/mL H* D 01/03/17 19:20 NT-Pro-B Natriuret Pep 2490 pg/mL (0-450) H 01/03/17 19:20 Total Protein 6.9 g/dL (5.8-8.3) 01/06/17 07:34 Albumin 4.4 g/dL (3.0-4.8) 01/06/17 07:34 Globulin 2.6 gm/dL 01/06/17 07:34 Albumin/Globulin Ratio 1.7 (1.1-1.8) 01/06/17 07:34 Venous Blood Potassium 4.5 mmol/L (3.6-5.2) 01/03/17 19:20 - Constitutional Appears: No Acute Distress - Head Exam Head Exam: ATRAUMATIC, NORMAL INSPECTION, NORMOCEPHALIC - Eye Exam Eye Exam: Normal appearance - ENT Exam ENT Exam: Normal External Ear Exam - Neck Exam Neck Exam: Normal Inspection - Respiratory Exam Respiratory Exam: NORMAL BREATHING PATTERN - Cardiovascular Exam Cardiovascular Exam: absent: JVD - GI/Abdominal Exam GI & Abdominal Exam: absent: Distended - Rectal Exam Rectal Exam: Deferred - Exam Additional comments: Deferred. - Extremities Exam Extremities Exam: Normal Inspection - Back Exam Back Exam: NORMAL INSPECTION - Neurological Exam Neurological Exam: Altered - Psychiatric Exam Psychiatric exam: Agitated - Skin Skin Exam: Normal Color Assessment and Plan - Assessment and Plan (Free Text) Assessment: Intermittent agitation. Dementia. COPD. HTN. CAD. Plan: Ativan 0.5 mg IV . Continue VEST restraints. Continue present management.
--- NOTE | 2017-01-07 02:16 | PN ---
PULMONARY PROGRESS NOTE DATE: 01/06/2017 REFERRING PHYSICIAN: Dr. Gan. SUBJECTIVE: He is sitting up in bed, agitated, has a phyllis, much more awake and alert. Cough is better. Able to eat without any problem. No chest pain. No nausea, vomiting, or diarrhea. No leg pain or leg swelling. PHYSICAL EXAMINATION: GENERAL: In no acute distress. VITAL SIGNS: Temperature is 98, heart rate is 91, respiratory rate is 20, blood pressure 154/86, pulse ox 97% on room air. HEENT: Moist mucous membrane. Crowded airway. Mallampati score is IV. NECK: Supple. No JVD. LUNGS: Has a fair airflow with few scattered rhonchi. HEART: S1 and S2. ABDOMEN: Soft, nontender. No organomegaly. EXTREMITIES: No edema. NEUROLOGICALLY: Awake, alert. Follow simple commands. MEDICATIONS: He is on Aricept 10 mg at bedtime, doxycycline 100 mg twice a day, DuoNeb q. 2 hour p.r.n., Ecotrin 81 mg daily, Lipitor 20 mg daily, Nuvigil 250 mg daily, Protonix 40 mg daily, Reglan 10 mg q.i.d., Solu-Medrol 20 mg q. 12 hour, benzonatate 100 mg 3 times a day, Zofran p.r.n. basis. LABORATORY DATA: Shows sodium 135, potassium 4.3, chloride 95, bicarbonate 32, BUN 14, creatinine 0.7, glucose 155, calcium 9.7, AST 26, ALT 42, alkaline phosphatase 127, albumin is 4.4. Microbiology, blood culture has been negative. IMPRESSION AND PLAN: Respiratory failure, requiring noninvasive ventilation, probably have a component of hypoventilation syndrome, obesity, chronic lung disease, Alzheimer-type dementia, there maybe a component of chronic aspiration, hypertension. Pulmonary point of view, doing okay. Encourage BiPAP use, antibiotics, bronchodilator. Continue daytime stimulant. Fall precautions. Out of bed to chair. Gastric and DVT prophylaxis. Thank you and we will follow with you. Thee Garrett MD
[2017-01-07] MEDS: Pantoprazole 40 mg EC Tab PO SCH (06:19)
[2017-01-07 08:03] LABS: HEMATOCRIT 41.9 % (42.0-52.0); MEAN CELL VOLUME 88.6 fl (80.0-105.0); MEAN CORPUSCULAR HEMOGLOBIN 29.4 pg (25.0-35.0); MEAN CORPUSCULAR HGB CONC 33.2 g/dl (31.0-37.0); MEAN PLATELET VOLUME 9.5 fl (7.0-11.0); RED CELL DISTRIBUTION WIDTH 13.4 % (11.5-14.5); WHITE BLOOD COUNT 9.2 10^3/ul (4.5-11.0)
[2017-01-07 08:17] LABS: BLOOD UREA NITROGEN 12 mg/dL (7-21); CALCIUM 9.6 mg/dL (8.4-10.5); CARBON DIOXIDE 33 mmol/L (21-33); CHLORIDE 96 mmol/L (98-107); GFR AFRICAN-AMERICAN > 60; GLUCOSE,RANDOM 123 mg/dL (70-110); POTASSIUM 4.6 mmol/L (3.6-5.0); SODIUM 136 mmol/L (132-148)
[2017-01-07] MEDS: Armodafinil 250 mg Tab PO SCH (09:39)
[2017-01-07] MEDS: MethylPREDNISolone 40 mg Vial IVP SCH (09:39)
--- NOTE | 2017-01-07 11:26 | PN ---
DATE: 01/07/2017 CARDIOLOGY FOLLOWUP SUBJECTIVE: The patient remains confused and he is trying to get out of bed. OBJECTIVE: VITAL SIGNS: Blood pressure 137/90, heart rates in the 80s. NECK: Negative JVD. LUNGS: Without rales. HEART: S1, S2. EXTREMITIES: Without edema. LABORATORY: BUN and creatinine are unremarkable. The glucose is 123, hemoglobin is 13.9. IMPRESSION 1. Non-ST elevation myocardial infarction. 2. Coronary artery disease. 3. History of bronchospasm and chronic obstructive pulmonary disease. 4. Marked dementia. Given these findings, we will continue his aspirin and Lipitor. No beta-blockers are given due to his history of bronchospasm. The patient is chest pain free at this time. We will obtain a stat troponin to make sure the troponin is decreasing trend, if so, we will consider discharging the patient on aspirin and statin therapy. Gennaro Jang MD
--- NOTE | 2017-01-08 00:13 | PN ---
PULMONARY PROGRESS NOTE REFERRING PHYSICIAN: Cecelia Gan MD SUBJECTIVE: He is lying in bed, head 45 degrees, sleepy, arousable, night was unremarkable, feels better, decreased cough. No nausea, vomiting, or diarrhea. No leg pain or leg swelling. OBJECTIVE: GENERAL: No acute distress. VITAL SIGNS: Temperature is 98, heart rate is 100, respiratory rate is 20, blood pressure 128/84, pulse ox 97% on room air. HEENT: Moist mucous membrane. Crowded airway. Mallampati score is IV. NECK: Supple. No JVD. LUNGS: Has scattered rhonchi. HEART: S1 and S2. ABDOMEN: Soft, nontender. No organomegaly. EXTREMITIES: No edema. NEUROLOGICAL: Awake, alert. Follow simple commands. MEDICATIONS: He is on Aricept 10 mg at bedtime, Ativan 0.25 mg three times a day p.r.n., doxycycline 100 mg twice a day, DuoNeb q. 2 hour p.r.n., Ecotrin 81 mg daily, Geodon 10 mg q. 12 hour p.r.n., Lipitor 20 mg daily, Nuvigil 250 mg daily, Protonix 40 mg daily, Reglan 10 mg q.i.d., Solu-Medrol 20 mg q. 12 hour, Tessalon Perles 100 mg three times a day and Zofran p.r.n. basis. LABORATORY DATA: Shows hemoglobin 13.9, hematocrit 41.9, WBC 9.2 and platelet is 338. Sodium 136, potassium 4.6, chloride 96, bicarbonate 33, BUN 12, creatinine 0.7, glucose 123, calcium is 9.6. Troponin 0.03. TSH is 1.21. Albumin is 4.4. Microbiology, blood culture has been negative. IMPRESSION AND PLAN: Respiratory failure, requiring noninvasive ventilation, there maybe component of hypoventilation syndrome secondary to obesity and daytime sleepiness, chronic obstructive lung disease, Alzheimer-type dementia, hypertension. I will discontinue Reglan, IV bronchodilators. Continue daytime stimulant. Encouraged BiPAP use at night. Fall precaution. Gastric prophylaxis and DVT prophylaxis. Thank you and we will follow with you. Thee Garrett MD
--- NOTE | 2017-01-08 02:52 | PN ---
SUBJECTIVE: The patient is an 86 years old male. The patient is seen and examined on the bedside, looking comfortable. No nausea, vomiting, or diarrhea. No hematuria or hematochezia. No swelling of the legs. No chest pain or palpitation. The patient is awake and alert, but confused. PHYSICAL EXAMINATION: VITAL SIGNS: Temperature 98.8, pulse 97, blood pressure 128/84 and respiratory rate 19. HEENT: Head: Normocephalic and atraumatic. Eyes: PERRLA. Extraocular muscles are intact. Conjunctivae are clear. Nose is patent. Mucous membranes are moist. NECK: Supple. No carotid bruits. No JVD or thyromegaly. CHEST: Bilaterally symmetrical. HEART: S1 and S2 positive. LUNGS: Clear to auscultation. ABDOMEN: Soft. Bowel sounds are positive. No organomegaly. EXTREMITIES: No edema. No cyanosis. NEUROLOGIC: The patient is awake and alert. Moving all 4 extremities, but is confused. MEDICATIONS: Aricept, Ativan, doxycycline, DuoNeb, Ecotrin, Geodon, Lipitor, Nuvigil, prednisone, Protonix, Zofran and Tessalon Perles. LABORATORY DATA: White blood cells is 9.2, hemoglobin 13.9, hematocrit 41.9 and platelets 338. Sodium 139, potassium 4.6, BUN 12, creatinine 0.7 and glucose 123. Troponin 0.03. ASSESSMENT AND PLAN: The patient is an 86-year-old male with anemia, hypochloremia, hyperglycemia, seen by the house sitter, Dr. Gennaro Jang. Has known ST elevation myocardial infarction, coronary artery disease, bronchospasm and chronic obstructive pulmonary disease and mild dementia. As per Cardiology, we will continue aspirin and Lipitor. No beta-blockers are given due to history of bronchospasm. Dr. Gennaro Jang ordeRed stat troponin. The patient was restrained, today, we released the strain. Due to respiratory failure, requiring noninvasive ventilation. May be having hypoventilation syndrome, obesity. Encouraged BiPAP as per Dr. Garrett. Fall precautions. Gastric and deep venous thrombosis prophylaxis. Repeat troponin is 0.03. First troponin was 0.16, it means this is trending down. We will discontinue telemetry. Meanwhile, continue present treatment. Repeat labs. We will follow up. Cecelia Gan MD MTDJannette
[2017-01-08] MEDS: Pantoprazole 40 mg EC Tab PO SCH (06:44)
[2017-01-08] MEDS: Albuterol-Ipratrop 3 mg / 0.5 (3 ml) UD IH PRN ×2 (07:36→13:12)
[2017-01-08] MEDS: Armodafinil 250 mg Tab PO SCH (09:53)
[2017-01-08 12:36] VITALS: BP 104/61; PULSE 98; RESP 19; TEMP 98.7
--- NOTE | 2017-01-08 13:09 | CON ---
DATE: 01/08/2017 HISTORY OF PRESENT ILLNESS: The patient is an 86-year-old male with a past medical history of Alzheimer's dementia, hypertension, and COPD. The patient was brought to the hospital from [facility] for evaluation of shortness of breath and change in mental status. The patient was admitted on the second floor. Psych consult was called for evaluation of restless and agitated behavior. RN called this literary writer yesterday and asked about p.r.n. medication for 4 days. This literary writer reviewed case yesterday. The patient had history of being on Geodon as needed from the previous admission and that is why this literary writer initiated Geodon 10 mg q. 12 hours as needed for agitation as well as Ativan 0.5 mg three times a day as needed for restless and anxious behavior. The patient was seen today for initial consultation. The patient presented to be sleepy, easily arousable through the night. The patient did not get any Geodon, but the patient got only two doses of Ativan, seems tolerated that well. During the interview, the patient is calm, cooperative. The patient knows that he is in the hospital. The patient was oriented in self. The patient does not know what was the reason for him to come to the hospital, denied being depressed. Denied thoughts of harming himself or others. Denied intent or plan. The patient is poor historian, but very pleasant gentleman. Collateral information was obtained from nurse practitioner, Anna. The patient does not have history of mental illness, but has history of dementia. The patient is very intelligent, he is to be a very independent and he always talks about investments and about some businesses. The patient in the [facility] is very independent. He is walking independently and sometimes the patient's agitated here on the medical side because he is restricted with ambulation because of risk of falls and safety precautions, but beside that, there is no other complaints. This literary writer reviewed previous history, reviewed medications. Collaterals were obtained from the nursing staff. PHYSICAL EXAMINATION: VITAL SIGNS: Reviewed. Temperature 97.5, pulse is 100, blood pressure 102/54, respiration 20 and oxygen saturation is 96 today. MEDICATIONS: Reviewed. The patient is on DuoNeb, armodafinil, aspirin, Lipitor, benzonatate, Aricept 10 mg at the nighttime, doxycycline, Ativan 0.5 mg IV push q. 8 hours as needed, Zofran as well as Protonix, prednisone and Geodon, which the patient did not get. LABORATORY DATA: Labs reviewed, seems to be within normal limits. Hemoglobin and hematocrit 13.9 and 41.9. Chemistry reviewed. MENTAL STATUS EXAM: As this literary writer described above, the patient is sleepy, easily arousable. The patient knows his name. The patient knows that he is in the hospital, but disoriented to time and date. No eye contact. The patient was talking to this literary writer with eyes closed. Speech was under productive. He has no answers. Mood described as I am okay. Affect was constricted. Thought process concrete, at times confabulates. Thought content, the patient denied visual, auditory or tactile hallucinations. Denied paranoid ideation. The patient denied thoughts of harming himself or others. Denied intent or plan. Insight and judgment limited due to dementia. Impulses are well controlled at present moment. IMPRESSION: Most likely the patient had delirium stage which could be related to chronic obstructive pulmonary disease exacerbation and hypoxia. The patient also has underlying dementia, multiple medical issues. PLAN: From the psychiatric standpoint, the patient presented well. The patient is not on one to one, does not have agitation or aggression. The patient needs to continue on current medications. There is no need for the patient to be on any psychotropic medications, Ativan could be given by mouth twice a day as needed for anxiety, but the patient presented very well. This is up to the medical team. The patient needs to be followed up with psychiatrist in the [facility] within 1 week after discharge. Should you have any questions give me a call back. Thank you very much for letting me participate in care of your patient. This literary writer will sign off. Thank you Andie Burt MD
--- NOTE | 2017-01-08 14:42 | IP.NPCORE ---
Acute [place] Core Measure PNote - LVF prior to this hospilization,if known LVF prior to this hospilization: Election Fraction greater than 40% - Ejection Fraction % Fraction %: 70 - Source Source: Echo - Date Date: 10/22/16 - Medications Aspirin Name/Dose/Frequency:: ASA 81mg PO Daily Contraindications to BB:: Asthma/COPD SAMANTHA or ARB: Name/dose/frequency: N/A Lipid Lowering Agent: Name/Dose/Frequency: Lipitor 20mg PO every evening LDL:: pending Date of test:: 01/07/17
[2017-01-08 15:29] LABS: CHOLESTEROL 177 mg/dL (130-200)
[2017-01-08 16:24] VITALS: O2SAT 99
--- NOTE | 2017-01-09 01:17 | DS ---
CHIEF COMPLAINT: Shortness of breath. HISTORY OF PRESENT ILLNESS: Mr. Feliz Mckoy is an 86-year-old male, resident of [facility], history of COPD, has exacerbation of COPD, was having shortness of breath plus oxygenation was in 80s in [place]. They gave him DuoNeb over there, but oxygenation was not increased, they sent the patient to [facility]. The patient was admitted,called consult with Dr. Javed Chaves because of the patient's delirious condition and Dr. Garrett for shortness of breath, Dr. 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 The patient was seen by Dr. Altamirano also. The patient improved, discharged back to [facility]. PAST MEDICAL HISTORY: Hypertension, COPD and dementia. FAMILY HISTORY: Father and mother noncontributory. HABITS: No smoking. No drug or ethanol. ALLERGIES: THE PATIENT IS NOT ALLERGIC WITH ANY MEDICATIONS. HOME MEDICATIONS: As reviewed by me. REVIEW OF SYSTEMS: The patient is seen and examined on the bedside, looking comfortable. No nausea, vomiting or diarrhea. No hematuria or hematochezia. No headache or dizziness. No chest pain or palpitation. No fever. No chill. Awake and alert. PHYSICAL EXAMINATION: VITAL SIGNS: Temperature 98.7, pulse 98, blood pressure 104/61, and respiratory rate 19. HEENT: Head is normocephalic and atraumatic. Eyes, PERRLA. Extraocular muscles are intact. Conjunctivae clear. Nose is patent. NECK: Supple. No carotid bruit. No JVD or thyromegaly. CHEST: Bilaterally symmetrical. HEART: S1 and S2 positive. LUNGS: Clear to auscultation. ABDOMEN: Soft. Bowel sounds present. No organomegaly. EXTREMITIES: No edema. No cyanosis. NEUROLOGIC: The patient is awake and alert. Moving all 4 extremities, but once in a while getting episodes of delirium. MEDICATIONS: Aricept, Ativan, doxycycline, Ecotrin,Geodon, Lipitor, Nuvigil, prednisone, Protonix, Tessalon Perles, and Zofran. LABORATORY DATA: White blood cells is 9.2, hemoglobin 13.9, hematocrit 41.9 and platelets 238. Sodium 136, potassium 4.9, BUN 12, creatinine 0.7 and glucose 123. ASSESSMENT AND PLAN: Mr. Ean Piper is an 86-year-old male with anemia, hypochloremia, diabetes mellitus, hypercholesterolemia, seen by Probate Clerk, Dr. Gennaro Jang, has non-ST elevation myocardial infarction, coronary artery disease, history of bronchospasm and chronic obstructive pulmonary disease, marked dementia. We would continue the patient on aspirin and Lipitor. No beta-blockers are given due to the patient's bronchospasm. Seen by Dr. Garrett, Boat Washer, respiratory failure, required noninvasive ventilation. There is component of hypoventilation syndrome secondary to obesity and daytime sleepiness. Dr. Garrett discontinued the Reglan, gave daytime stimulant,encouraged BiPAP use at night. Seen by Dr. Javed Chaves, Psychiatrist. According to him the patient is belligerent because of his medical condition. The patient is to follow up with the Psychologist in the [facility]. Otherwise, he has only advanced dementia. We will discharge the patient back to [facility]. We will complete the treatment there and we will get physical therapy. GI and DVT prophylaxis. Cecelia Gan MD
== END 2017-01-08 16:34 | DRG 280 ==
LOC: ED 18:38 → ERH 22:18 → 2RSO 01-04 00:08
PROVIDERS: ADMIT Internal Medicine; ATTEND Internal Medicine
PROC: 5A09357 Assistance with Respiratory Ventilation, Less than 24 Consecutive Hours, Continuous Positive Airway Pressure (ICD-10-PCS; principal; 2017-01-03)
DX: I21.4 Non-ST elevation (NSTEMI) myocardial infarction (principal); J96.91 Respiratory failure, unspecified with hypoxia; J44.1 Chronic obstructive pulmonary disease with (acute) exacerbation; F02.81 Dementia in other diseases classified elsewhere, unspecified severity, with behavioral disturbance; F05 Delirium due to known physiological condition; E87.1 Hypo-osmolality and hyponatremia; E66.2 Morbid (severe) obesity with alveolar hypoventilation; I11.0 Hypertensive heart disease with heart failure; I50.9 Heart failure, unspecified; G30.9 Alzheimer's disease, unspecified; I25.10 Atherosclerotic heart disease of native coronary artery without angina pectoris; K21.9 Gastro-esophageal reflux disease without esophagitis; L80 Vitiligo; D64.9 Anemia, unspecified; M19.90 Unspecified osteoarthritis, unspecified site; F41.9 Anxiety disorder, unspecified; M51.9 Unspecified thoracic, thoracolumbar and lumbosacral intervertebral disc disorder; E78.00 Pure hypercholesterolemia, unspecified; E11.65 Type 2 diabetes mellitus with hyperglycemia; I27.20 Pulmonary hypertension, unspecified; Z68.26 Body mass index [BMI] 26.0-26.9, adult; Z87.891 Personal history of nicotine dependence; Z78.1 Physical restraint status